=== PATIENT | male | born 1950 | race Caucasian/White ===

== ENCOUNTER 2019-07-21 11:03 | Emergency (ER) | payer MEDICARE, OTHER, SELFPAY ==
--- NOTE | ~2019-07-21 | XR_ITS ---
XR ankle LT min 3V DATE: 07/21/2019 11:55 INDICATION: Lateral pain and swelling for 2 days. No known injury. TECHNIQUE: 4 views COMPARISON: None FINDINGS: Small linear cortical densities are noted subjacent to the inferior tip of the lateral mall eolus which may represent small cortical avulsion fractures of undetermined age, possibly chronic. Th ere is mild lateral soft tissue swelling. No other fracture or dislocation of the ankle or disruption of the ankle mortise is detected. Mild plantar calcaneal enthesopathy. IMPRESSION: Indeterminate small cortical avulsion fractures subjacent to the tip of the lateral malle olus Mild lateral soft tissue swelling Reviewed, dictated and finalized at location A. IMPRESSION: Indeterminate small cortical avulsion fractures subjacent to the ti p of the lateral malleolus Mild lateral soft tissue swelling
[2019-07-21 11:20] VITALS: BP 135/75; PULSE 70; RESP 16; TEMP 36.8; O2SAT 97
--- NOTE | 2019-07-21 13:15 | ED.LOWEXIN ---
HPI - Extremity Injury (Lower) General Chief Complaint: Extremity Injury, Lower Stated Complaint: Swollen Ankle History of Present Illness HPI Narrative: This is a 68-year-old male comes in complaining of left lateral ankle swelling for the past 3 to 4 days. Patient denies do anything for his symptoms patient's denies any injury patient wants an x-ray. Patient has had ankle and hereknee pain that has been chronic for years Related Data Home Medications Medication Instructions Recorded Confirmed bupropion HCl 300 mg PO QAM 07/21/19 07/21/19 clopidogrel [Plavix] 75 mg PO DAILY 07/21/19 07/21/19 eszopiclone [Lunesta] 1 mg PO HS 07/21/19 07/21/19 potassium chloride 10 meq PO BID 07/21/19 07/21/19 Allergies Allergy/AdvReac Type Severity Reaction Status Date / Time Penicillins Allergy Unknown Rash Verified 09/02/17 18:48 pneumococcal vaccine Allergy Unknown Rash Verified 09/02/17 18:48 NSAIDS (Non-Steroidal AdvReac Unknown Other Verified 09/02/17 18:48 Anti-Inflamma Review of Systems Review of Systems: Narrative: CONSTITUTIONAL: Denies fever, chills, or sweats. EYES: Denies visual changes, redness, or discharge. ENT: Denies rhinorrhea, congestion, sore throat, or otalgia. CARDIOVASCULAR:Denies chest pain, palpitations, or edema. RESPIRATORY: Denies cough or dyspnea. GASTROINTESTINAL: Denies abdominal pain, nausea, vomiting, or diarrhea. GENITOURINARY: Denies dysuria or hematuria. SKIN:[Denies rash or itching. MUSCULOSKELETAL:Denies back pain, positive left ankle joint pain, or myalgia. NEUROLOGIC: Denies headache, numbness, or weakness. PSYCHIATRIC:Denies anxiety or depression PMFSH Comments At time as signature, I have reviewed and agree with nursing past medical, social, surgical and family history. Please see nursing chart for further information. There is no relevant family history pertinent to the presenting complaint. Exam Narrative: Exam Narrative: GENERAL:Well-appearing, well-nourished, and in no acute distress. HEAD:Normocephalic, atraumatic. EYES: PERRLA and EOMI. ENT: Nares clear, no rhinorrhea or epistaxis. Mucous membranes moist. NECK: Supple. CHEST: Clear to auscultation. No respiratory distress. HEART: Regular rate and rhythm. No murmur heard. Normal peripheral pulses. ABDOMEN: Soft, nontender, nondistended, normal active bowel sounds. EXTREMITIES: decreased left ankle range of motion due to pain .left ankle edema and swelling that patient states has been going on for months Course Vital Signs Vital signs: Vital Signs Temperature 98.2 F 07/21/19 11:20 Pulse Rate 70 07/21/19 11:20 Respiratory Rate 16 07/21/19 11:20 Blood Pressure 135/75 07/21/19 11:20 Pulse Oximetry 97 07/21/19 11:20 Temperature 98.2 F 07/21/19 11:20 Pulse Rate 70 07/21/19 11:20 Respiratory Rate 16 07/21/19 11:20 Blood Pressure 135/75 07/21/19 11:20 Pulse Oximetry 97 07/21/19 11:20 MDM - Extremity Injury (Lower) Differential Diagnosis Differential diagnosis: Likely ankle sprain and strain, acute internal derangement of knee, fracture of toe and ankle fracture Discharge Plan Discharge Clinical Impression: Fracture of ankle, lateral malleolus, closed Qualifiers: Encounter type: initial encounter Fracture alignment: nondisplaced Laterality: left Qualified Code(s): S82.65XA - Nondisplaced fracture of lateral malleolus of left fibula, initial encounter for closed fracture Patient Disposition: Home, Self-Care Condition: Stable Instructions: Antibiotic Form, Ankle Fracture (ED) Additional Instructions: Avoid weight bearing until the pain subsides. Ice to the area 20-30 minutes 4-6 times a day Elevate above heart Elastic wrap or orthopedic splint as directed for comfort for the next 5-7 days Crutches as directed if needed Tylenol for lesser pain Ibuprofen regularly for the next 2-3 days for the inflammation Follow up with your primary care provider if the condition is not i
== END 2019-07-21 14:13 | disposition home or self-care (01) ==
PROVIDERS: Emergency Provider Nurse Practitioner Family; PCP Internal Medicine
DX: S82.65XA Nondisplaced fracture of lateral malleolus of left fibula, initial encounter for closed fracture (principal); X58.XXXA Exposure to other specified factors, initial encounter; Z79.01 Long term (current) use of anticoagulants; I48.91 Unspecified atrial fibrillation; Z95.0 Presence of cardiac pacemaker
CPT/HCPCS: 73610; 99213; G0463

== ENCOUNTER 2019-11-19 08:00 | Outpatient (RCR) | payer MEDICARE, OTHER, SELFPAY ==
--- NOTE | 2019-10-30 15:54 | OTOPEVAL ---
OCCUPATIONAL THERAPY EVALUATION REPORT 10/30/2019 Thank you for referring Khadar Flowers to [facility]. Skilled OT indicated 2x/week for 3 weeks. Please review, sign, date and return this plan of care SIDNEY. I agree with and certify that the following plan of care is medically necessary. Referring Physician Date Referring Provider: Dr. Thomas Rosenberg *OT Outpatient Evaluation Start: 10/30/19 13:38 Freq: Status: Active Protocol: Document 10/30/19 13:38 MEGHANA (Rec: 10/30/19 14:21 MEGHANA [id number]) Therapy Assessment Status Assessment Status Assessment Status Evaluation Outpatient Past Medical History Cardiovascular History Hx Atrial Fibrillation Yes Hx Cardiac Catheterization Yes Hx Pacemaker Yes Hx Vascular Surgery Yes: ABLATION, WATCHMAN PROCEEDURE Genitourinary History Hx Kidney Stones Yes Musculoskeletal History Hx Back Pain Yes Hx Fractures Yes: ankle fx, lateral malleolus Hx Orthopedic Surgery Yes: LOWER BACK, RT. KNEE HEENT History Hx Tonsillectomy Yes Psychosocial History Hx Anxiety Yes Evaluation Information Problem Diagnosis s/p trigger finger and carpal tunnel release right hand Onset 10/07/19 Prior Level of Function Activity Level (Last 3 Months) Occupation Retired Hand Dominance Right Pain Assessment Timing of Pain Assessment Timing of Pain Assessment Assessment Pain Scale Pain Scale Used Numeric (1 - 10) Self Report Pain Assessment Right Hand(s) Reported Pain Level 1 Lowest Pain Intensity 0 Greatest Pain Intensity 6 Pain Score Pain Score 1: Self Report Upper Extremity Range of Motion Wrist Range of Motion Right Wrist Flexion - Active 60 Wrist Extension - Active 40 Wrist Extension - Passive 60 Wrist Radial Deviation - Active 25 Wrist Ulnar Deviation - Active 35 Finger Range of Motion Right Index Finger PIP Joint Extension - -20 Active Index Finger Tip to Distal Palmar Crease 2 - Active Index Finger Tip to Base of Palm - 2 Active Middle Finger Tip to Distal Palmar 1 Crease - Active Middle Finger Tip to Base of Palm - 0 Active Ring Finger PIP Joint Extension - Active -15 Ring Finger PIP Joint Extension - 0 Passive Ring Finger Tip to Distal Palmar Crease 1 - Active Ring Finger Tip to Base of Palm - Active 0 Little Finger
--- NOTE | 2019-11-19 12:22 | OTOPEVAL ---
OCCUPATIONAL THERAPY DISCHARGE NOTE 11/19/2019 Khadar has participated in 4 sessions of outpatient OT following trigger finger release and carpal tunnel release surgeries on the right hand. Patient's biggest limitation to functional use was flexibility, particularly at the PIP joints of the involved digits. At this time the patient made progress with the index finger IP extension from 20* lag to 10* lag actively, and is able to achieve full extension passively. Ring finger actively is WNL. He is currently independent with all materials to continue to work on ROM and strength. Thank you for referring Khadar Flowers to [facility]. Please review, sign, date and return this D/C Note SIDNEY. I agree with and certify that the following plan of care is medically necessary. Referring Physician Date Referring Provider: Dr. Rosenberg
== END 2019-11-21 14:12 | disposition home or self-care (01) ==
LOC: ANHOT 08:00
PROVIDERS: PCP Internal Medicine
DX: G56.01 Carpal tunnel syndrome, right upper limb (principal); M65.30 Trigger finger, unspecified finger; M65.321 Trigger finger, right index finger
CPT/HCPCS: 97018; 97035; 97110; 97140; 97165

== ENCOUNTER 2020-11-02 21:43 | Emergency (ER) | payer MEDICARE, OTHER, SELFPAY ==
--- NOTE | ~2020-11-02 | CT_ITS ---
EXAMINATION: CT abdomen pelvis w con DATE: 11/03/2020 00:38 INDICATION: Abdominal pain TECHNIQUE: Computed tomography (CT) of the abdomen and pelvis was performed with 100 mL Omnipaque-350 intravenous contrast. Automated exposure control and iterative reconstruction technique were employe d. The dose-length product was 800.45 mGy-cm. COMPARISON: None FINDINGS: Mild atelectasis in the bilateral lower lobes. 6 mm likely intrafissural lymph node along the left ma galo fissure. Arch size is normal. No pericardial or pleural effusion. Cardiac pacemaker lead tips ter minating at the right atrial appendage and at the apex of the right ventricle. Likely closure device at the left atrial appendage. Liver, gallbladder, spleen, pancreas and bilateral adrenal glands are normal. Bilateral nephrolithias is. 3 stones in the right kidney the largest measuring 5 mm at the lower pole and 2 stones in the lef t kidney the largest at the lower pole measuring 3 mm. No ureteral stones or hydronephrosis. There is prominent diverticulosis along the descending and sigmoid colon. There is prominent wall thickening and inflammatory stranding centered at the proximal sigmoid colon consistent with diverticulitis. No abscess or free intraperitoneal gas. Trace amount of free fluid in the deep pelvis. Small bowel and a ppendix are normal. Small fat-containing right inguinal hernia. Bladder is normal. Prostatomegaly. No pathologically enla rged abdominal or pelvic lymphadenopathy. Partial L3 laminectomy. Anterior and posterior spinal fusio n at L3-L5 with bone graft cage at L3-L4 and with bilateral vertical marty and pedicle screw fixation a lso at L3-L4. Chronic L1 compression fracture with 20% anterior vertebral body height loss. IMPRESSION: 1. Radiographically uncomplicated sigmoid diverticulitis. 2. Bilateral nephrolithiasis. 3. Small fat-containing right inguinal hernia. 4. Prostatomegaly. Reviewed, dictated and finalized at location A.
[2020-11-02 22:05] VITALS: BP 151/82; PULSE 84; RESP 18; TEMP 36.9; O2SAT 97
[2020-11-02 22:30] LABS: Basophils Percent Auto 0.3 % (0.2-1.2); Eosinophils Percent Auto 0.2 % (0-4.4); Hematocrit 45.9 % (42.0-52.0); Hemoglobin 15.1 g/dL (14.0-18.0); Immature Granulocyte Absolute 0.08 K/mm3 (0.00-0.031); Immature Granulocyte Percent A 0.6 % (0-0.5); Mean Corpuscular HGB Conc 32.9 g/dl (32-36); Mean Corpuscular Hemoglobin 29.2 pg (26-34); Mean Corpuscular Volume 88.8 fl (80-100); Mean Platelet Volume 9.6 fl (7.4-10.4); Monocytes Absolute Auto 1.1 K/mm3 (0.1-0.6); Monocytes Percent Auto 8.6 % (2.6-8.5); Neutrophils Absolute Auto 10.3 K/mm3 (1.3-6.7); Neutrophils Percent Auto 82.3 % (45.5-73.1); Platelet Count Result 258 k/mm3 (150-375); Red Blood Count 5.17 M/mm3 (4.6-6.20); Red Cell Distribution Width 12.1 % (11.5-14.5); White Blood Count 12.6 K/mm3 (4.5-10.0)
[2020-11-02 22:38] LABS: Alanine Aminotransferase 17 U/L (4-50); Albumin Level 4.4 g/dL (3.5-5.1); Alkaline Phosphatase 122 U/L (38-126); Anion Gap 11 mmol/L (8-16); Aspartate Amino Transferase 25 U/L (17-59); Bilirubin,Total 0.9 mg/dL (0.2-1.3); Blood Urea Nitrogen 13 mg/dL (9-20); Calcium 10.5 mg/dL (8.4-10.2); Carbon Dioxide 22 mmol/L (22-30); Chloride 106 mmol/L (98-107); Estimated CRCL calculation 73 ml/min; Estimated Glomerular Filt Rate > 60; Glucose 101 mg/dL (75-110); Lipase 26 U/L (23-300); Potassium 4.2 mmol/L (3.4-5.0); Sodium 139 mmol/L (137-145)
--- NOTE | 2020-11-02 22:59 | PC.NURSE ---
PT AMBULATED IN [place] TO PROVIDE URINE SPECIMEN.
[2020-11-02 23:09] VITALS: PULSE 85; RESP 18; TEMP 37.1; O2SAT 97
--- NOTE | 2020-11-02 23:12 | PC.NURSE ---
AGREE WITH TRIAGE NOTES. PT PRESENTS TO ED WITH COMPLAINTS OF ABDOMINAL PAIN THAT ONSET THREE DAYS AGO. PT COMPLAINING OF CONSTIPATION AND STATES HE HAS BEEN TAKING STOOL SOFTENERS WITH SOME RELIEF. pT DENIES ABDOMINAL PAIN AT THIS TIME AND STATES THE PAIN IS INTERMITTENT. ADMITS TO NAUSEA AND DENIES EMESIS, DIARRHEA, FEVER, CHEST PAIN AND SOB. PT NOTED TO BE ALERT AND ORIENTED X4 AND IN NO OBVIOUS DISTRESS. CALL BUTTON AND PERSONAL ITEMS WITHIN REACH. PT ADVISED TO PRESS CALL BUTTON FOR ASSISTANCE.
[2020-11-02 23:29] LABS: Add Urine Microscopic? YES; Appearance Urine Clear (Clear); Bilirubin Urine Negative (Negative); Blood Urine Negative (Negative); Color Urine Yellow (Yellow); Glucose Urine UA Negative (Negative); Ketones Urine Trace mg/dL (Negative); Leukocyte Esterase Ur Negative LEU/UL (Negative); Mucus Urine Rare /lpf; Nitrate Urine Negative (Negative); Protein Urine Negative (Negative); RBC Urine 0-2 /hpf (0-2); Urobilinogen Urine Negative mg/dL (<2.0); WBC Urine 0-3 /hpf
--- NOTE | 2020-11-02 23:41 | ED.ABDPAIN ---
HPI - Abdominal Pain General Chief Complaint: Abdominal Pain Stated Complaint: abdominal pain, fever Time Seen by Provider: 11/02/20 23:39 Source: patient Mode of arrival: ambulatory Limitations: no limitations History of Present Illness HPI narrative: Patient is a 70-year-old male complaining of abdominal pain, lower abdomen, dull, 6 out of 10, nonradiating x3 days. Patient denies any chest pain, shortness of breath, nausea, vomiting, diarrhea, fever, chills or GI bleed. Related Data Home Medications Medication Instructions Recorded Confirmed bupropion HCl 300 mg PO QAM 07/21/19 07/21/19 clopidogrel [Plavix] 75 mg PO DAILY 07/21/19 07/21/19 eszopiclone [Lunesta] 1 mg PO HS 07/21/19 07/21/19 potassium chloride 10 meq PO BID 07/21/19 07/21/19 Allergies Allergy/AdvReac Type Severity Reaction Status Date / Time Penicillins Allergy Unknown Rash Verified 11/02/20 22:08 pneumococcal vaccine Allergy Unknown Rash Verified 11/02/20 22:08 NSAIDS (Non-Steroidal AdvReac Unknown Other Verified 11/02/20 22:08 Anti-Inflamma Review of Systems Review of Systems: All systems reviewed & are unremarkable except as noted in HPI and below Constitutional: Constitutional: Denies body ache(s), Denies chills, Denies excessive sweating, Denies fatigue, Denies fever(s), Denies headache(s), Denies lethargy, Denies malaise, Denies weakness and Denies weight loss Eyes: Eyes: Denies blurry vision, Denies change in vision and Denies loss of vision ENT: Denies dizziness, Denies ear discharge, Denies headache(s), Denies lip swelling, Denies epistaxis, Denies nasal congestion, Denies neck pain, Denies throat swelling and Denies tongue swelling Cardiovascular: Cardiovascular: Denies chest pain, Denies chest pain at rest, Denies chest pain with activity, Denies diaphoresis, Denies rapid heart rate, Denies edema, Denies irregular heart rhythm, Denies lightheadedness, Denies palpitations, Denies dyspnea and Denies dyspnea on exertion Respiratory: Respiratory: Denies chest congestion, Denies cough, Denies hemoptysis, Denies dyspnea and Denies dyspnea on exertion Gastrointestinal: Gastrointestinal: Denies abdominal pain, Denies melena, Denies hematochezia, Denies diarrhea, Denies nausea, Denies vomiting and Denies hematemesis Musculoskeletal: Musculoskeletal: Denies abnormal gait, Denies deformity, Denies joint swelling, Denies limited range of motion, Denies neck pain and Denies numbness Neurologic: Denies Abnormal speech present, Denies abnormal gait, Denies confusion, Denies dizziness, Denies headache(s), Denies focal weakness, Denies loss of vision, Denies numbness, Denies Other visual disturbances, Denies Sensory deficit (Neuro) and Denies weakness Psychiatric: Psychiatric: Denies confusion, Denies depression, Denies auditory hallucinations, Denies homicidal ideation and Denies suicidal ideation Endocrine: Endocrine: Denies cold intolerance, Denies excessive sweating, Denies fatigue, Denies heat intolerance and Denies palpitations Hematologic/Lymphatic: Hematologic/Lymphatic: Denies easy bleeding and Denies easy bruising Allergic/Immunologic: Allergic/Immunologic: Denies lip swelling, Denies throat swelling and Denies tongue swelling PMFSH Comments Past medical history: Coronary artery disease, insomnia Social history: Non-smoker no EtOH or drug use Family history: Noncontributory Exam Const: General: cooperative, healthy appearing, comfortable, no acute distress, well developed, alert and awake; No confusion Orientation/consciousness: oriented to person, oriented to place, oriented to time, patient oriented x3 and No confusion Limitations: no limitations HENMT: Head: normal to inspection, normocephalic and atraumatic Ears: hearing grossly normal bilaterally, TM normal on the right and TM normal on the left General nose exam: Normal external nose present, Normal nares present and No nasal discharge present Face and sinus: normal facial exam Mouth:
[2020-11-03] MEDS: LACTATED RINGERS 1,000 ML 999 ML IV CONT (00:08)
--- NOTE | 2020-11-03 01:08 | PC.NURSE ---
Pharmacy called for med. [facility] med was just tubed.
[2020-11-03 01:13] VITALS: BP 163/84; PULSE 80; RESP 23; O2SAT 98
[2020-11-03 02:11] VITALS: BP 140/76; PULSE 84; RESP 24; O2SAT 95
--- NOTE | 2020-11-03 02:12 | PC.NURSE ---
EDMD presented to bedside to update pt on poc and all questions and concerns addressed. Pt states he does not want to be admitted due to other commitments. Pt aware of need to infuse meds before dc and agrees to stay for administration. Pt resting on cart in its lowest position with call button and personal items within reach. Pt advised to press call button for assistance.
[2020-11-03] MEDS: metroNIDAZOLE 500 MG/ISO 100ML 500 MG/100 ML BAG 100 MG IVPB (02:40)
[2020-11-03] MEDS: SODIUM CHLORIDE 0.9% IV 1,000 ML 999 ML IV CONT (02:41)
[2020-11-03 03:37] VITALS: BP 152/85; PULSE 83; RESP 21; TEMP 37; O2SAT 99
--- NOTE | 2020-11-03 03:37 | PC.NURSE ---
Pt at bedside using urinal. Remains alert and oriented x4 with stable vitals and is in no obvious distress at this time. Pt is prepared for dc and is aware to return to ED if symptoms increase.
== END 2020-11-03 03:50 | disposition home or self-care (01) ==
PROVIDERS: Emergency Medicine; Emergency Provider Emergency Medicine; PCP Internal Medicine
DX: K57.92 Diverticulitis of intestine, part unspecified, without perforation or abscess without bleeding (principal); Z79.02 Long term (current) use of antithrombotics/antiplatelets
CPT/HCPCS: 36415; 74177; 80053; 81001; 83690; 85025; 96361; 96365; 96367; 96375; 99284; J0131; J0696; J7030; J7120; Q9967

== ENCOUNTER 2020-12-25 12:31 | Emergency (ER) | payer MEDICARE, OTHER, SELFPAY ==
[2020-12-25 12:56] VITALS: BP 141/71; PULSE 80; RESP 18; TEMP 36.4; O2SAT 99
[2020-12-25 13:21] LABS: Basophils Percent Auto 0.4 % (0.2-1.2); Eosinophils Absolute Auto 0.1 K/mm3 (0-0.3); Eosinophils Percent Auto 0.7 % (0-4.4); Hematocrit 45.3 % (42.0-52.0); Hemoglobin 14.8 g/dL (14.0-18.0); Immature Granulocyte Absolute 0.02 K/mm3 (0.00-0.031); Immature Granulocyte Percent A 0.2 % (0-0.5); Lymphocytes Absolute Auto 1.38 K/mm3 (0.9-3.2); Mean Corpuscular HGB Conc 32.7 g/dl (32-36); Mean Corpuscular Hemoglobin 29.5 pg (26-34); Mean Corpuscular Volume 90.2 fl (80-100); Mean Platelet Volume 9.8 fl (7.4-10.4); Monocytes Absolute Auto 0.9 K/mm3 (0.1-0.6); Monocytes Percent Auto 9.2 % (2.6-8.5); Neutrophils Absolute Auto 6.9 K/mm3 (1.3-6.7); Neutrophils Percent Auto 74.5 % (45.5-73.1); Platelet Count Result 214 k/mm3 (150-375); Red Blood Count 5.02 M/mm3 (4.6-6.20); Red Cell Distribution Width 13.4 % (11.5-14.5); White Blood Count 9.2 K/mm3 (4.5-10.0)
[2020-12-25 13:38] LABS: Alanine Aminotransferase 20 U/L (4-50); Albumin Level 4.3 g/dL (3.5-5.1); Alkaline Phosphatase 105 U/L (38-126); Anion Gap 8 mmol/L (8-16); Aspartate Amino Transferase 23 U/L (17-59); Bilirubin,Total 1.1 mg/dL (0.2-1.3); Blood Urea Nitrogen 13 mg/dL (9-20); Calcium 10.1 mg/dL (8.4-10.2); Carbon Dioxide 24 mmol/L (22-30); Chloride 105 mmol/L (98-107); Estimated CRCL calculation 82 ml/min; Estimated Glomerular Filt Rate > 60; Glucose 106 mg/dL (65-110); Lipase 25 U/L (23-300); Potassium 3.9 mmol/L (3.4-5.0); Sodium 137 mmol/L (137-145)
--- NOTE | 2020-12-25 14:18 | PC.NURSE ---
pt states he is going home. left from the waiting room.
== END 2020-12-26 04:46 | disposition left against medical advice (07) ==
PROVIDERS: Emergency Provider Emergency Medicine; PCP Internal Medicine
DX: R10.9 Unspecified abdominal pain (principal); Z53.21 Procedure and treatment not carried out due to patient leaving prior to being seen by health care provider
CPT/HCPCS: 36415; 80053; 83690; 85025; 99199

== ENCOUNTER 2021-09-05 14:36 | Observation (INO) | payer MEDICARE, OTHER, SELFPAY ==
[2021-09-05] VITALS (7 sets, daily range): BP systolic 130–151; BP diastolic 70–91; PULSE 60–86; RESP 16–20; TEMP 36.1–36.7; O2SAT 97–100
--- NOTE | ~2021-09-05 | CT_ITS ---
EXAMINATION: CT abdomen pelvis w con DATE: 09/05/2021 15:59 INDICATION: Left lower quadrant pain TECHNIQUE: Computed tomography (CT) of the abdomen and pelvis was performed with 100 mL Omnipaque-350 intravenous contrast. The dose-length product was 1021.69 mGy-cm. COMPARISON: 11/03/2020. FINDINGS: Lower thorax: Unremarkable. Liver: Normal. Biliary/Gallbladder: Gallbladder is normal. No bile duct dilation. Spleen: Normal. Pancreas: No mass or duct dilation. Adrenals:No mass. Kidneys: Left perinephric stranding and fluid. 5 mm stone in the left mid ureter. Nonobstructive righ t renal stones. No renal masses. GI tract: No small or large bowel dilation. Extensive diverticulosis without diverticulitis. Normal a ppendix. Mesentery/Peritoneum: No ascites, mass, or free air. Retroperitoneum: No mass. Pelvis: Pelvic organs are within normal limits. Bones/Soft Tissues: Soft tissues and body wall unremarkable. Degenerative changes. Uncomplicated appe aring lumbar fusion. Additional Findings: None. IMPRESSION: 5 mm left mid ureteral stone causing mild obstructive uropathy. No evidence of diverticulitis. Reviewed, dictated and finalized at location K.
--- NOTE | ~2021-09-05 | XR_ITS ---
EXAMINATION: XR retrograde pyelogram LT DATE: 09/06/2021 17:02 INDICATION: Left-sided retrograde pyelogram for left ureteral stone. TECHNIQUE: 3 fluoroscopic images of the abdomen and pelvis were obtained during procedure performed jorge luis Og. Radiologist was not present for the imaging or procedure. The amount of fluoroscopy ti me used during this procedure was 0.5 minutes. COMPARISON: CT dated 09/05/2021 FINDINGS: There is a small amount of excreted contrast within the bladder and initial analytical consultant image likely relate d to the earlier CT scan. Couple phleboliths in the deep right hemipelvis. Midline instrumented L3-L4 anterior and posterior spinal fusion. Subsequent images demonstrate mild left hydronephrosis with sm all lucent filling defect in the proximal to mid left ureter measuring approximately 3-4 mm likely re presenting the previous noted ureteral stone. IMPRESSION: 1. 3-4 mm at least partially obstructing stone in the proximal to mid left ureter with mild left hydr onephrosis. Procedure note for further detail and to determine whether the stone was subsequently ext racted. Reviewed, dictated and finalized at location A. IMPRESSION: 1. 3-4 mm at least partially obstructing stone in the proximal to mid left uret er with mild left hydronephrosis. Procedure note for further detail and to dete rmine whether the stone was subsequently extracted.
[2021-09-05 14:55] LABS: Basophils Percent Auto 0.3 % (0.2-1.2); Eosinophils Absolute Auto 0.1 K/mm3 (0-0.3); Eosinophils Percent Auto 1.2 % (0-4.4); Hematocrit 44.8 % (42.0-52.0); Hemoglobin 15.2 g/dL (14.0-18.0); Immature Granulocyte Absolute 0.02 K/mm3 (0.00-0.031); Immature Granulocyte Percent A 0.3 % (0-0.5); Lymphocytes Absolute Auto 1.27 K/mm3 (0.9-3.2); Lymphocytes Percent Auto 17.4 % (18.3-44.2); Mean Corpuscular HGB Conc 33.9 g/dl (32-36); Mean Corpuscular Hemoglobin 29.9 pg (26-34); Mean Platelet Volume 9.6 fl (7.4-10.4); Monocytes Absolute Auto 0.6 K/mm3 (0.1-0.6); Monocytes Percent Auto 7.7 % (2.6-8.5); Neutrophils Absolute Auto 5.3 K/mm3 (1.3-6.7); Neutrophils Percent Auto 73.1 % (45.5-73.1); Platelet Count Result 212 k/mm3 (150-375); Red Blood Count 5.09 M/mm3 (4.6-6.20); Red Cell Distribution Width 12.3 % (11.5-14.5); White Blood Count 7.3 K/mm3 (4.5-10.0)
--- NOTE | 2021-09-05 15:09 | ED.ABDPAIN ---
HPI - Abdominal Pain General Chief Complaint: Abdominal Pain Stated Complaint: abd pain Time Seen by Provider: 09/05/21 15:05 Source: patient Related Data Home Medications Medication Instructions Recorded Confirmed bupropion HCl 300 mg PO QAM 07/21/19 07/21/19 clopidogrel [Plavix] 75 mg PO DAILY 07/21/19 07/21/19 eszopiclone [Lunesta] 1 mg PO HS 07/21/19 07/21/19 potassium chloride 10 meq PO BID 07/21/19 07/21/19 Allergies Allergy/AdvReac Type Severity Reaction Status Date / Time Penicillins Allergy Unknown Rash Verified 09/05/21 15:06 pneumococcal vaccine Allergy Unknown Rash Verified 09/05/21 15:06 NSAIDS (Non-Steroidal AdvReac Unknown Other Verified 09/05/21 15:06 Anti-Inflamma Course Vital Signs Vital signs: Vital Signs Temperature 36.2 C L 09/05/21 14:38 Pulse Rate 86 09/05/21 14:38 Respiratory Rate 16 09/05/21 14:38 Blood Pressure 134/73 09/05/21 14:38 Pulse Oximetry 100 09/05/21 14:38 Temperature 36.2 C L 09/05/21 14:38 Pulse Rate 86 09/05/21 14:38 Respiratory Rate 16 09/05/21 14:38 Blood Pressure 134/73 09/05/21 14:38 Pulse Oximetry 100 09/05/21 14:38 MDM - Abdominal Pain Lab Data Result diagrams: 09/05/21 14:43 09/05/21 14:43 Labs: Lab Results 09/05/21 09/05/21 Range/Units 14:43 14:43 WBC 7.3 (4.5-10.0) K/mm3 RBC 5.09 (4.6-6.20) M/mm3 Hgb 15.2 (14.0-18.0) g/dL Hct 44.8 (42.0-52.0) % MCV 88.0 (80-100) fl MCH 29.9 (26-34) pg MCHC 33.9 (32-36) g/dl RDW 12.3 (11.5-14.5) % Plt Count 212 (150-375) k/mm3 MPV 9.6 (7.4-10.4) fl Immature Gran % (Auto) 0.3 (0-0.5) % Neut % (Auto) 73.1 (45.5-73.1) % Lymph % (Auto) 17.4 L (18.3-44.2) % Payne % (Auto) 7.7 (2.6-8.5) % Eos % (Auto) 1.2 (0-4.4) % Baso % (Auto) 0.3 (0.2-1.2) % Lymph # (Auto) 1.27 (0.9-3.2) K/mm3 Payne # (Auto) 0.6 (0.1-0.6) K/mm3 Eos # (Auto) 0.1 (0-0.3) K/mm3 Baso # (Auto) 0.0 (0.0-0.1) K/mm3 Abs Immat Gran (auto) 0.02 (0.00-0.031) K/mm3 Absolute Neuts (auto) 5.3 (1.3-6.7) K/mm3 Absolute Nucleated RBC 0.0 (0.0-0.012) K/mm3 Nucleated RBC % 0.0 (0.0-0.2) % Sodium Pending Potassium Pending Chloride Pending Carbon Dioxide Pending Anion Gap Pending BUN Pending Creatinine Pending Estim Creat Clear Calc Pending Estimated GFR Pending Glucose Pending Calcium Pending Total Bilirubin Pending AST Pending ALT Pending Alkaline Phosphatase Pending Total Protein Pending Albumin Pending Lipase Pending Discharge Plan Discharge Prescriptions: No Action potassium chloride 10 mEq Tablet Extended Release 10 meq PO BID RF: 0 clopidogrel [Plavix] 75 mg Tablet 75 mg PO DAILY RF: 0 bupropion HCl 300 mg Tablet Extended Release 24 Hr 300 mg PO QAM RF: 0 eszopiclone [Lunesta] 1 mg Tablet 1 mg PO HS RF: 0 tramadol 50 mg tablet 50 mg PO Q6H PRN (Reason: pain) Qty: 10 RF: 0 metronidazole [Flagyl] 500 mg tablet 500 mg PO Q8H Qty: 21 RF: 0 ciprofloxacin HCl [Cipro] 500 mg tablet 500 mg PO Q12H Qty: 14 RF: 0
[2021-09-05 15:16] LABS: Alanine Aminotransferase 23 U/L (4-50); Albumin Level 3.9 g/dL (3.5-5.1); Alkaline Phosphatase 104 U/L (38-126); Anion Gap 7 mmol/L (8-16); Aspartate Amino Transferase 31 U/L (17-59); Bilirubin,Total 0.5 mg/dL (0.2-1.3); Blood Urea Nitrogen 15 mg/dL (9-20); Calcium 9.5 mg/dL (8.4-10.2); Carbon Dioxide 24 mmol/L (22-30); Chloride 108 mmol/L (98-107); Estimated CRCL calculation 67 ml/min; Estimated Glomerular Filt Rate > 60; Glucose 123 mg/dL (65-110); Lipase 49 U/L (23-300); Sodium 139 mmol/L (137-145)
[2021-09-05] MEDS: SODIUM CHLORIDE 0.9% IV 1,000 ML 999 ML IV CONT (15:26)
[2021-09-05] MEDS: ONDANSETRON INJ 4 MG/2 ML VIAL IV PUSH ×2 (15:27→18:15)
[2021-09-05] MEDS: HYDROmorphone HCL INJ (*CRX) 1 MG/ML SYR 0.5 MG IV PUSH (15:31)
[2021-09-05 15:52] LABS: Add Urine Microscopic? YES; Appearance Urine Cloudy (Clear); Bilirubin Urine Negative (Negative); Blood Urine 3+ (Negative); Calcium Oxalate Crystals Urine Present /hpf; Color Urine Yellow (Yellow); Glucose Urine UA Negative (Negative); Ketones Urine Negative (Negative); Leukocyte Esterase Ur Negative LEU/UL (Negative); Mucus Urine Rare /lpf; Nitrate Urine Negative (Negative); Protein Urine Negative (Negative); RBC Urine >75 /hpf (0-2); Specific Grav Ur 1.019 (1.001-1.035); Urobilinogen Urine Negative mg/dL (<2.0); WBC Urine 0-3 /hpf
[2021-09-05 17:32] LABS: Lactic Acid Reflex 0.6 mmol/L (0.7-2.0)
--- NOTE | 2021-09-05 18:09 | ED.ABDPAIN ---
HPI - Abdominal Pain General Chief Complaint: Abdominal Pain Stated Complaint: abd pain Time Seen by Provider: 09/05/21 15:05 Source: patient History of Present Illness HPI narrative: Patient is a 70-year-old male with a history of kidney stones (hx shock wave lithotripsy- Lucia), diverticulitis, afib s/p pacemaker placement, who presents emergency department for evaluation of left flank pain for the past day. Patient states the pain begins in his left flank and radiates into his LLQ. It is sharp, stabbing, shooting in nature and is severe. Patient states he became nauseous today and began to vomit, and has vomited 3 times in total. Additionally reports some blood in his urine, but no dysuria, frequency, urgency. No fevers or chills at home. Related Data Home Medications Medication Instructions Recorded Confirmed bupropion HCl 300 mg PO QAM 07/21/19 09/05/21 clopidogrel [Plavix] 75 mg PO DAILY 07/21/19 09/05/21 eszopiclone [Lunesta] 1 mg PO HS PRN 07/21/19 09/06/21 potassium chloride 20 meq PO BID 07/21/19 09/05/21 cyanocobalamin (vitamin B-12) 50 mcg PO DAILY 09/05/21 09/05/21 fluticasone propionate [Flonase] 1 spray INTRANASAL DAILY 09/05/21 09/05/21 sotalol 80 mg PO BID 09/05/21 09/05/21 Allergies Allergy/AdvReac Type Severity Reaction Status Date / Time Penicillins Allergy Unknown Rash Verified 09/05/21 22:30 pneumococcal vaccine Allergy Unknown Rash Verified 09/05/21 22:30 adhesive tape Allergy Swelling Verified 09/05/21 22:30 amiodarone Allergy Other Verified 09/05/21 22:30 NSAIDS (Non-Steroidal AdvReac Mild Other Verified 09/05/21 22:30 Anti-Inflamma Review of Systems Review of Systems: Gen: Denies fevers or chills Eyes: Denies eye pain or visual change ENT: Denies congestion Respiratory: Denies shortness of breath or cough CV: Denies chest pain or palpitations GI: Denies abdominal pain nausea, emesis or diarrhea : reports hematuria. Denies burning, urgency, frequency Musculoskeletal: Reports left low back pain. Neuro: Denies numbness, tingling, weakness or focal weakness Skin: Denies rash Except as documented, all other systems reviewed and negative All systems reviewed & are unremarkable except as noted in HPI and below PMFSH Past Medical History Medical History (Updated 09/06/21 @ 02:17 by Julita Martinez PA-C) Depression Diet-controlled diabetes mellitus Essential hypertension History of BPH Hyperlipidemia Kidney stones Obstructive sleep apnea BiPAP Paroxysmal atrial fibrillation TIA (transient ischemic attack) (~2006) Surgical History Surgical History (Updated 09/05/21 @ 22:29 by Michelle Cai DO) Artificial cardiac pacemaker (~2013) History of cardiac catheterization (~2014) History of cardiac radiofrequency ablation 2008, 2013, 2016 History of laminectomy History of repair of rotator cuff History of tonsillectomy and adenoidectomy History of transurethral resection of prostate (~2015) Presence of Watchman left atrial appendage closure device (~2017) Status post trigger finger release Family History Family History Father DVT (deep venous thrombosis) Cerebrovascular accident Malignant neoplasm of prostate Sibling Breast cancer Colon cancer Ureter cancer Mother COPD (chronic obstructive pulmonary disease) Social History Social History (Updated 09/05/21 @ 22:33 by Michelle Cai DO) Social History: The patient lives in [place] with his of 47 years. 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 He denies any significant alcohol use to speak of. He denies illicit substance use. He quit smoking in the . Code status: Full code Surrogate decision maker: Smoking packs per day: 1 Smoking cigarettes per day: 20.0 Years smoked: 10 Smoking pack-years: 10.00 Smoking status:
--- NOTE | 2021-09-05 18:53 | PC.NURSE ---
Pts called and updated
[2021-09-05] MEDS: KETOROLAC 15 MG/ML VIAL (*BKC) IV PUSH (19:12)
--- NOTE | 2021-09-05 19:57 | PM.IMHP ---
H&P: HPI History of Present Illness Date/Time: 09/05/21 19:57 Chief Complaint: Left-sided abdominal pain Narrative: 70-year-old male the past medical history of paroxysmal atrial fibrillation no longer on anticoagulation after Watchman procedure, essential hypertension and prior kidney stones who presented to the ER with left lower abdominal pain. The patient reports that his symptoms started 5 days ago. He reports that he was hospitalized at [facility] until last Monday due to recurrent atrial flutter. He received sotalol loading and was discharged. He reports that since he was started on sotalol he had noticed some increased glass belt sander to his stools. When he began having they left-sided abdominal pain anteriorly in the mid left abdomen he thought it was due to the sotalol. He called his discharging doctor who thought his symptoms were due to possible food poisoning, since the patient was having accompanying nausea and vomiting. His symptoms resolved in under 24 hours but recurred today. Today the abdominal pain was a 10/10 in intensity in the left lower abdomen and radiated through to the back. He had some associated chills but did not measure his temperature. When he arrived to the ER he was afebrile. He again had recurrent nausea and vomiting of clear material. His pain was not relieved with Dilaudid in the ER in fact the 0.5 mg of Dilaudid made him goofy. His pain was improved after Toradol and his pain is minimal at this time. He did received 2 doses of Zofran in the ER with complete resolution of his nausea and vomiting. He denies any dysuria or gross hematuria. He has noticed decreased urine output throughout the day. He has had 2 prior kidney stones both of which required cystoscopy with stent placement. His last 1 was approximately 2015. He reported that with his initial cystoscopy and stent placement he did have a allergic reaction to a medication when the stent was removed and required some steroid therapy. He did not have a recurrence of the symptoms with his subsequent procedures. He sees a urologist at [facility]. He denies any chest pain, shortness of breath, palpitations. He denies any coffee-ground emesis or hematemesis. His stools have been brown and soft. His last bowel movement was yesterday. Review of Systems Review of Systems: 10 systems were reviewed with pertinent positives and negatives per HPI. Except as documented in the HPI, all other systems were reviewed and are negative. [facility] Past Medical History Medical History (Updated 09/05/21 @ 22:29 by Michelle Cai DO) Depression Diet-controlled diabetes mellitus Essential hypertension History of BPH Hyperlipidemia Kidney stones Obstructive sleep apnea BiPAP Paroxysmal atrial fibrillation TIA (transient ischemic attack) (~2006) Surgical History Surgical History (Updated 09/05/21 @ 22:29 by Michelle Cai DO) Artificial cardiac pacemaker (~2013) History of cardiac catheterization (~2014) History of cardiac radiofrequency ablation 2008, 2013, 2016 History of laminectomy History of repair of rotator cuff History of tonsillectomy and adenoidectomy History of transurethral resection of prostate (~2015) Presence of Watchman left atrial appendage closure device (~2017) Status post trigger finger release Family History Family History (Updated 09/05/21 @ 20:16 by Michelle Cai DO) Father DVT (deep venous thrombosis) Cerebrovascular accident Malignant neoplasm of prostate Sibling Breast cancer Colon cancer Ureter cancer Mother COPD (chronic obstructive pulmonary disease) Social History Social History (Updated 09/05/21 @ 22:33 by Michelle Cai DO) Social History: The patient lives in [place] with his of 47 years. 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 He denies any significant alcohol use to speak of. He denies illicit substance
--- NOTE | 2021-09-05 22:20 | ADMGEN ---
This patient, Khadar Flowers, was admitted to Medical Room 261-01. Patient/family oriented to hospital policies and general routines including ID bracelet, bed and alarms, visiting hours, pain management, procedures, bathroom and other care routines, personal items, smoking policy, room service/diet, and visiting hours. Information on how to activate the Rapid Response Team has been discussed. Patient/Family are encouraged to report perceived risks to care and to ask questions if they do not understand what they are told or what they should do.
[2021-09-05] MEDS: SODIUM CHLORIDE 0.9% IV 1,000 ML 150 ML IV CONT (23:02)
[2021-09-05] MEDS: HYDROcodone/acetaminophen (*CRX) 5-325 MG TABLET 1 TAB PO (23:02)
[2021-09-06] VITALS (17 sets, daily range): BP systolic 119–157; BP diastolic 66–89; PULSE 60–85; RESP 12–20; TEMP 35.7–36.5; O2SAT 96–99
--- NOTE | 2021-09-06 03:23 | PCRCNOTE ---
Pt states that his machine at home was originally set as a CPAP but that it was switched to have a minimal PS of 1 or 1.5 that was essentially like a reverse C-Flex. He was set up here with an auto BiPAP machine with a PS of 1.
[2021-09-06] MEDS: SODIUM CHLORIDE 0.9% IV 1,000 ML 150 ML IV CONT ×2 (05:39→12:53)
--- NOTE | 2021-09-06 07:39 | WPDURCON ---
Assessment and Plan Assessment and plan (1) Left ureteral stone: Code(s): N20.1 - Calculus of ureter Status: Acute Assessment and Plan: will plan for left ureteroscopy with stone extraction. May require holmium laser lithotripsy. Will also plan on a stent. He understands risks of bleeding, infection, damage to the urinary tract, inability to remove the stone and a need for a secondary procedure. he understands if I cannot get to the left ureteral stone that a stent be placed we a 2nd stone procedure to follow. He agrees to proceed (2) Hydronephrosis: Code(s): N13.30 - Unspecified hydronephrosis Status: Acute Urology Consult Note HPI Date Seen: 09/06/21 Requesting Physician: Sonia Don PA-C Primary Care Provider: Timmy Davidson MD Consult Narrative Narrative: Khadar Flowers is a 70 year old male With history of stone disease. He has been managed at [facility] and at [facility]. He has had ureteroscopy with stone extraction the past. He has history of arrhythmia and is chronically anticoagulated. He has a pacemaker and a watchman device. He presented to the hospital yesterday afternoon with worsening left flank pain radiating to left lower quadrant. He noted nausea and vomiting. He had a similar episode a week previous which he attributed to a heart medication. A CT scan was done which showed a 5 mm mid ureteral stone. He is currently comfortable but would like intervention for his stone. I offered observation as well with a conservative trial of stone passage. He like to pursue ureteroscopy to eliminate future pain episodes. Review of Systems Review of Systems: All systems reviewed & are unremarkable except as noted in HPI and below [facility] Past Medical History Medical History (Updated 09/06/21 @ 07:43 by Jayjay Og MD) Depression Diet-controlled diabetes mellitus Essential hypertension History of BPH Hyperlipidemia Kidney stones Obstructive sleep apnea BiPAP Paroxysmal atrial fibrillation TIA (transient ischemic attack) (~2006) Surgical History Surgical History (Updated 09/05/21 @ 22:29 by Michelle Cai DO) Artificial cardiac pacemaker (~2013) History of cardiac catheterization (~2014) History of cardiac radiofrequency ablation 2008, 2013, 2017 History of laminectomy History of repair of rotator cuff History of tonsillectomy and adenoidectomy History of transurethral resection of prostate (~2016) Presence of Watchman left atrial appendage closure device (~2018) Status post trigger finger release Family History Family History Father DVT (deep venous thrombosis) Cerebrovascular accident Malignant neoplasm of prostate Sibling Breast cancer Colon cancer Ureter cancer Mother COPD (chronic obstructive pulmonary disease) Social History Social History (Updated 09/05/21 @ 22:33 by Michelle Cai DO) Social History: The patient lives in [place] with his of 47 years. 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 He denies any significant alcohol use to speak of. He denies illicit substance use. He quit smoking in the . Code status: Full code Surrogate decision maker: Smoking packs per day: 1 Smoking cigarettes per day: 20.0 Years smoked: 10 Smoking pack-years: 10.00 Smoking status: Former smoker Tobacco type: cigarettes Alcohol intake: never Substance use: never Substance use type: does not use Spiritual care concerns: No Meds Home Medications and Allergies Home Medications Medication Instructions Recorded Confirmed Type bupropion HCl 300 mg PO QAM 07/21/19 09/05/21 History clopidogrel [Plavix] 75 mg PO DAILY 07/21/19 09/05/21 History eszopiclone [Lunesta] 1 mg PO HS PRN 07/21/19 09/06/21 History potassium chloride 20
--- NOTE | 2021-09-06 07:44 | WPDHPUPDATE1 ---
History and Physical Update Update Date/Time: 09/06/21 07:44 History and Physical has been reviewed, including an updated exam of the patient. There are NO changes in the patient's condition. Risks, benefits, and alternatives have been discussed and questions answered. Patient agrees to proceed with procedure.
--- NOTE | 2021-09-06 08:02 | PM.DS ---
DS: Admitting Diagnosis Discharge Date 09/06/21 Admitting Diagnosis Flank pain. DS: Discharge Diagnosis Discharge Diagnosis (1) Urinary tract obstruction due to kidney stone: Code(s): N20.0 - Calculus of kidney; N13.8 - Other obstructive and reflux uropathy Status: Acute Assessment and Plan: Patient has an obstructing 5 mm left mid ureteral stone with mild obstructive uropathy. Urology performed cystoscopy with removal of bladder stone, left retrograde pyelogram. Pain and nausea control. Urology discharged this patient after the procedure. (2) Paroxysmal atrial fibrillation: Code(s): I48.0 - Paroxysmal atrial fibrillation Status: Inactive Assessment and Plan: Patient currently has Medtronic pacemaker, status post Watchman device implant, is not on any anticoagulation aside from Plavix. Continue sotalol Held Plavix today for procedure, continued tomorrow. DS: Summary Hospital Course Reason for hospitalization: Kidney stone. Hospital Course: See above for full hospital course. Time Spent with Patient Time attestation: Total time spent providing and/or coordinating discharge services: Exam Narrative: I did not re-examine this patient after cystoscopy and stone extraction, urology discharged the patient. GENERAL APPEARANCE: Alert and oriented x 3, in no apparent distress. HEENT: PERRL, EOMI. Sclerae anicteric. Moist mucous membranes. NECK: Supple. No JVD or obvious carotid bruits. RESPIRATORY: Respirations are nonlabored. Breath sounds are equal and clear bilaterally. No wheezes, Rhonchi, or rales. CARDIOVASCULAR: Regular rate and rhythm with normal S1-S2. No murmurs, gallops, or rubs. GASTROINTESTINAL: Soft, flat, and benign. No mass, tenderness, guarding, or rebound. No organomegaly or hernia. Bowel sounds are present. SKIN: Warm, dry, well perfused. Good turgor. No lesions, nodules, or rashes noted. Warm and dry. No rash or lesions on limited exam. EXTREMITIES: No cyanosis, clubbing, or edema. Radial and pedal pulses intact. NEUROLOGICAL: Alert. Cranial nerves 2-12 are grossly intact. No gross focal deficits to casual conversation. PSYCHIATRIC: Pleasant and cooperative with normal mood and affect. DS: Data Data Completed and Pending Completed studies during hospitalization: Pending at discharge 09/06/21 16:55 Surgical [PTH] Routine Discharge Plan Discharge Attending physician on discharge: Sonia Don Consulting providers: Jayjay Og ; Ugo Canas ; Ahsan Reza ; Michelle Cai Discharging Clinician: Jayjay Og Anticipated Discharge Date/Time: 09/06/21 17:05 Patient Disposition: Home, Self-Care Activity: may shower Diet: as tolerated Discharge Instructions: Continue all home medications. Start all medications given to you by urology. Return if you have worsening symptoms, fever, chills, chest pain, shortness a breath. Follow-up with Urology as advised by Urology. Patient Instructions: Antibiotic Form, Clopidogrel (By mouth), Blood Thinners (DC) Stand Alone Forms: General Discharge Information Follow-up/Referrals: Jorden Orellana MD [Physician] - (6 months) Discharge Medications: New phenazopyridine [Pyridium] 200 mg tablet 200 mg PO TID PRN (Reason: pain) Qty: 30 0RF Continued potassium chloride 10 mEq Tablet Extended Release 20 meq PO BID clopidogrel [Plavix] 75 mg Tablet 75 mg PO DAILY bupropion HCl 300 mg Tablet Extended Release 24 Hr 300 mg PO QAM eszopiclone [Lunesta] 1 mg Tablet 1 mg PO HS PRN (Reason: Sleep) sotalol 80 mg tablet 80 mg PO BID cyanocobalamin (vitamin B-12) 50 mcg Tablet 50 mcg PO DAILY fluticasone propionate 50 mcg/actuation [place],Suspension 1 spray INTRANASAL DAILY Date of admission: 09/05/21 18:57 Primary Care Provider: Stuart,Timmy Young Admitting Provid
--- NOTE | 2021-09-06 09:27 | PM.IMPN ---
Progress Note: A&P Assessment and Plan (1) Urinary tract obstruction due to kidney stone: Code(s): N20.0 - Calculus of kidney; N13.8 - Other obstructive and reflux uropathy Status: Acute Assessment and Plan: Patient has an obstructing 5 mm left mid ureteral stone with mild obstructive uropathy. Urology has been consulted, cystoscopy today at 4PM. NPO today. Pain medications with morphine and [place] a been provided. Nausea medication with Zofran. Will place patient on IV fluid hydration. (2) Paroxysmal atrial fibrillation: Code(s): I48.0 - Paroxysmal atrial fibrillation Status: Inactive Assessment and Plan: Patient currently has Medtronic pacemaker, status post Watchman device implant, is not on any anticoagulation aside from Plavix. Continue sotalol Held Plavix today for procedure, continued tomorrow. Subjective Date/time seen: 09/06/21 09:27 62-year-old male with history of AFib and a flutter, status post Watchman device, hypertension, diet-controlled diabetes, and history of obstructing kidney stones, here for nausea, vomiting, abdominal pain. Interval history: States he is having no pain today. The urologist came and saw him and told him his procedure will be today at 4:00 p.m. he had questions about his all medications and wants to be sure they are continued, as he was just started on sotalol. He denies nausea, vomiting, chest pain, shortness a breath, abdominal pain and urinary or stool changes. Exam Narrative: GENERAL APPEARANCE: Alert and oriented x 3, in no apparent distress. HEENT: PERRL, EOMI. Sclerae anicteric. Moist mucous membranes. NECK: Supple. No JVD or obvious carotid bruits. RESPIRATORY: Respirations are nonlabored. Breath sounds are equal and clear bilaterally. No wheezes, Rhonchi, or rales. CARDIOVASCULAR: Regular rate and rhythm with normal S1-S2. No murmurs, gallops, or rubs. GASTROINTESTINAL: Soft, flat, and benign. No mass, tenderness, guarding, or rebound. No organomegaly or hernia. Bowel sounds are present. SKIN: Warm, dry, well perfused. Good turgor. No lesions, nodules, or rashes noted. Warm and dry. No rash or lesions on limited exam. EXTREMITIES: No cyanosis, clubbing, or edema. Radial and pedal pulses intact. NEUROLOGICAL: Alert. Cranial nerves 2-12 are grossly intact. No gross focal deficits to casual conversation. PSYCHIATRIC: Pleasant and cooperative with normal mood and affect. Objective Data Vital Signs Vital Signs: Vital Signs - 24 hr 09/05/21 14:38 09/05/21 15:42 09/05/21 19:15 Temperature 97.1 F L Pulse Rate 86 60 79 Respiratory Rate 16 16 19 Blood Pressure 134/73 151/91 H 143/78 H Pulse Oximetry 100 100 98 09/05/21 21:24 09/05/21 21:40 09/05/21 22:20 Temperature 98.0 F Pulse Rate 75 62 Respiratory Rate 18 20 Blood Pressure 130/79 Pulse Oximetry 97 98 99 09/05/21 22:45 09/06/21 00:10 09/06/21 03:20 Temperature 97.0 F L Pulse Rate 62 61 64 Respiratory Rate 20 14 12 Blood Pressure 131/70 Pulse Oximetry 99 96 97 09/06/21 06:00 09/06/21 08:18 Temperature 97.3 F L Pulse Rate 66 Respiratory Rate 20 Blood Pressure 119/66 Pulse Oximetry 98 98 Intake/Output Intake/Output: Intake & Output 09/03/21 09/04/21 09/05/21 09/06/21 23:59 23:59 23:59 23:59 Intake Total 1000 1000 Output Total 700 Balance 1000 300 Meds/Results Medications: Active Medications Generic Name Dose Route Start Last Admin Trade Name Freq PRN Reason Stop Dose Admin Hydrocodone Bitart/Acetaminophen 1 tab 09/05/21 19:49 09/05/21 23:02 Hydrocodone/Acetaminophen (*Crx) 5-325 Mg Tablet PO 1 tab Q4H PRN Administration Pain Rated 4-6 Bupropion HCl 300 mg 09/06/21 09:00 Bupropion Hcl Xl (24 Hr) 150 Mg Tabcr PO QAM LOLA Clopidogrel Bisulfate 75 mg 09/07/21 09:00 Clopidogrel Bisulfate 75 Mg Tablet PO DAILY LOLA Fluticasone Propionate 1 spray 05
[2021-09-06] MEDS: buPROPion HCL XL (24 HR) 150 MG TABCR 300 MG PO (09:57)
[2021-09-06] MEDS: POTASSIUM CHLORIDE 20 MEQ TABLET PO ×2 (09:58→19:05)
[2021-09-06] MEDS: SOTALOL HCL 80 MG TABLET PO ×2 (09:58→19:04)
[2021-09-06] MEDS: FLUTICASONE PROPIONATE 0.05% NA SPR 16 GM BTL (*BKC) 1 SPRAY NASAL (09:58)
[2021-09-06] MEDS: LACTATED RINGERS 1,000 ML 30 ML IV CONT (15:00)
--- NOTE | 2021-09-06 15:55 | WPDANESEPPF ---
Anes - Initial Pre Proc Eval Procedure: Operation Date: 09/06/21 16:00 Proposed Procedures p Cystoscopy, Retrograde Pyelogram, Left Stone Extraction, Possible Left Stent Placement; Possible Holmium Laser(Left) - Jayjay Og MD Date/Time: 09/06/21 15:55 Surgeon: Sonia Don PA-C Pre Op Diagnosis: Nephrolithiasis Patient Data Age: 70 Gender: M Height: 1.8 m Weight: 97.8 kg Last Vital Signs Temp 36.2 C L 09/06/21 14:53 Pulse 65 09/06/21 14:53 Resp 16 09/06/21 14:53 BP 131/83 09/06/21 14:53 Pulse Ox 98 09/06/21 14:53 Allergies Allergy/AdvReac Type Severity Reaction Status Date / Time Penicillins Allergy Unknown Rash Verified 09/05/21 22:30 pneumococcal vaccine Allergy Unknown Rash Verified 09/05/21 22:30 adhesive tape Allergy Swelling Verified 09/05/21 22:30 amiodarone Allergy Other Verified 09/05/21 22:30 NSAIDS (Non-Steroidal AdvReac Mild Other Verified 09/05/21 22:30 Anti-Inflamma Home Medications Medication Instructions Recorded Confirmed Type bupropion HCl 300 mg PO QAM 07/21/19 09/05/21 History clopidogrel [Plavix] 75 mg PO DAILY 07/21/19 09/05/21 History eszopiclone [Lunesta] 1 mg PO HS PRN 07/21/19 09/06/21 History potassium chloride 20 meq PO BID 07/21/19 09/05/21 History cyanocobalamin (vitamin B-12) 50 mcg PO DAILY 09/05/21 09/05/21 History fluticasone propionate [Flonase] 1 spray INTRANASAL DAILY 09/05/21 09/05/21 History sotalol 80 mg PO BID 09/05/21 09/05/21 History Laboratory Tests 09/05/21 17:12 Lactic Acid 0.6 mmol/L L mmol/L (0.7-2.0) Patient hx anesthesia problems: none Family hx anesthesia problems: none Results Review: All pre-operative results and documents have been reviewed as part of the pre-operative evaluation. [facility] Past Medical History Medical History (Updated 09/06/21 @ 09:30 by Sonia Don PA-C) Depression Diet-controlled diabetes mellitus Essential hypertension History of BPH Hyperlipidemia Kidney stones Obstructive sleep apnea BiPAP Paroxysmal atrial fibrillation TIA (transient ischemic attack) (~2006) Surgical History Surgical History (Updated 09/05/21 @ 22:29 by Michelle Cai DO) Artificial cardiac pacemaker (~2013) History of cardiac catheterization (~2014) History of cardiac radiofrequency ablation 2008, 2013, 2017 History of laminectomy History of repair of rotator cuff History of tonsillectomy and adenoidectomy History of transurethral resection of prostate (~2015) Presence of Watchman left atrial appendage closure device (~2017) Status post trigger finger release Family History Family History Father DVT (deep venous thrombosis) Cerebrovascular accident Malignant neoplasm of prostate Sibling Breast cancer Colon cancer Ureter cancer Mother COPD (chronic obstructive pulmonary disease) Social History Social History (Updated 09/05/21 @ 22:33 by Michelle Cai DO) Social History: The patient lives in [place] with his of 47 years. 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 He denies any significant alcohol use to speak of. He denies illicit substance use. He quit smoking in the 1980s. Code status: Full code Surrogate decision maker: Smoking packs per day: 1 Smoking cigarettes per day: 20.0 Years smoked: 10 Smoking pack-years: 10.00 Smoking status: Former smoker Tobacco type: cigarettes Alcohol intake: never Substance use: never Substance use type: does not use Spiritual care concerns: No Anes - Eval Final PreProcedure Day of Procedure 09/06/21 15:55 Patient weight: obese Heart: regular rate and rhythm Lungs: clear to auscultation and normal air movement Airway: Mallampati scale class II Neurological: alert and oriented Last oral intake: >/= 8 hours ASA classification:
[2021-09-06] MEDS: ceFAZolin SODIUM 1 GM VIAL 2 GM IV PUSH (16:41)
[2021-09-06] MEDS: LIDOCAINE HCL 2% GEL UROJET 10 ML PKG MUCOUS MEM (16:55)
--- NOTE | 2021-09-06 17:01 | W.PM.PROC2 ---
Procedure Note - Detailed Date of Procedure 09/06/21 Pre-op Diagnosis Nephrolithiasis Post-op Diagnosis Same Procedure Performed Cystoscopy with removal of bladder stone, left retrograde pyelogram Surgeon Jayjay Og MD Anesthesia General Indications This is a gentleman admitted with a 5 mm left ureteral stone. He would like intervention for his stone. He understands risks of bleeding, infection, lack of presence of stone, inability remove the stone. He agrees to proceed Findings Stones in the bladder. Extracted intact. Normal left retrograde pyelogram Description of Procedure His correctly identified. Informed consent obtained. From the operating room. He was given general anesthesia. Placed in dorsal thigh position. He was prepped and draped in a sterile fashion. Time-out performed. Prostate was open consistent with previous TUR. His bladder had moderate trabeculations. No tumors. Ureteral orifices normal. A 5 mm stone was seen within the bladder lumen. It was extracted intact. I then did a left retrograde pyelogram. He had a delicate ureter and collecting system. No hydronephrosis, no extravasation, no filling defect. His bladder was drained. Uro jet was applied. He was awakened and transferred to PACU in stable condition. Implants None Estimated Blood Loss 1 Drains No Packing No Pathology None sent Complications No immediate complications Condition Stable Disposition PACU
[2021-09-06] MEDS: PHENAZOPYRIDINE HCL 100 MG TABLET 200 MG PO (19:40)
--- NOTE | 2021-09-07 08:52 | WPDANESPN ---
Anes - Prog Note Post-Op Date/Time: 09/07/21 08:52 Cardiovascular status: normal Respiratory status: normal Airway patency: baseline Mental status: baseline Post-Op hydration status: normal Vital Signs: Last Vital Signs Temp 96.3 F L 09/06/21 19:15 Pulse 65 09/06/21 19:15 Resp 20 09/06/21 19:15 BP 136/72 09/06/21 19:15 Pulse Ox 98 09/06/21 19:15 Pain Score (VAS): 05/17 I/O: Intake & Output 09/06/21 09/07/21 09/07/21 23:59 07:59 15:59 Intake Total 200 Output Total 600 Balance -400 Laboratory Tests 09/05/21 14:43 09/05/21 14:43 Post-procedural complaints: none Patient Feedback: Patient satisfied with anesthetic care.
== END 2021-09-06 19:45 | disposition home or self-care (01) ==
LOC: ANHED 15:05 → ANH2MED 20:56
PROVIDERS: Emergency Medicine; Urology; Admitting Provider Family Medicine; Emergency Provider Emergency Medicine; PCP Internal Medicine; Visit Provider Student in an Organized Health Care Education/Training Program
PROC: (CPT 52352; principal; 2021-09-06 16:00)
DX: N21.0 Calculus in bladder (principal); N13.8 Other obstructive and reflux uropathy; I48.0 Paroxysmal atrial fibrillation; I10 Essential (primary) hypertension; E11.9 Type 2 diabetes mellitus without complications; G47.33 Obstructive sleep apnea (adult) (pediatric); Z87.891 Personal history of nicotine dependence
CPT/HCPCS: 52310; 36415; 74177; 74420; 80053; 81001; 82365; 83605; 83690; 85025; 88300; 96361; 96374; 96375; 96376; 99285; A9270; C1758; C1769; G0378; J0690; J1100; J1170; J1885; J2405; J2704; J3010; J7030; J7120; Q9966; Q9967

== ENCOUNTER 2023-03-16 07:18 | Observation (INO) | payer MEDICARE, OTHER, SELFPAY ==
[2023-03-16] VITALS (10 sets, daily range): BP systolic 122–162; BP diastolic 66–101; PULSE 61–78; RESP 11–20; TEMP 36.1–36.8; O2SAT 97–100
--- NOTE | ~2023-03-16 | XR_ITS ---
EXAMINATION: XR abdomen/kub 1V INDICATION: Right flank pain TECHNIQUE: Supine views of the abdomen were obtained on 2 radiographs. COMPARISON: CT from today FINDINGS: The proximal right ureteral stone seen on CT is obscured by lumbar fusion hardware. An 8 mm stone is seen in the right kidney lower pole. There are phleboliths of the pelvis. The bowel gas pat tern is normal. The visualized lung bases are clear. IMPRESSION: 1. Known proximal right ureteral stone obscured by lumbar fusion hardware. 2. Right nephrolithiasis. Reviewed, dictated and finalized at location L. CAR REPAIRMAN
--- NOTE | ~2023-03-16 | CT_ITS ---
EXAMINATION: CT abdomen pelvis wo con DATE: 03/16/2023 08:06 INDICATION: Right flank pain TECHNIQUE: Computed tomography (CT) of the abdomen and pelvis was performed without intravenous contr ast. The dose-length product (DLP) was 368.01 mGy-cm. Automated exposure control and iterative recons truction technique were employed. COMPARISON: 09/05/2021 FINDINGS: Minimal dependent atelectasis is present in the lung bases. The heart size is normal. The l iver, spleen, pancreas, gallbladder, and adrenal glands are normal. There is an 8 mm stone in the pro ximal right ureter causing mild hydronephrosis. There is a 7 mm stone of the right kidney lower pole. Nonobstructing stones of the left kidney measure up to 2 mm. No pathologically enlarged abdominal or pelvic lymph nodes are identified. No free intraperitoneal gas or evidence of bowel obstruction. Col onic diverticulosis is present without evidence of diverticulitis. There is a right inguinal hernia c ontaining fat. The appendix is normal. There are changes of posterior fusion from L2 through L4 and a nterior fusion at L3-4. There is severe lumbar spondylosis at L4-5. IMPRESSION: 1. 8 mm stone of the proximal right ureter causing mild hydronephrosis. 2. Bilateral nephrolithiasis. Reviewed, dictated and finalized at location L. FICIAL STONE SETTER
--- NOTE | ~2023-03-16 | XR_ITS ---
EXAMINATION: XR retrograde pyelo w/stent RT DATE: 03/16/2023 15:48 INDICATION: Right ureteral stone. TECHNIQUE: 3 intraoperative fluoroscopic views of the abdomen and pelvis were obtained. I was not pre sent. Fluoroscopy exposure time was 37 seconds. COMPARISON: CT abdomen and pelvis 03/16/2023 FINDINGS: There are changes of anterior and posterior fusion procedures in lumbar spine. The right-si ded retrograde pyelogram demonstrates mild hydronephrosis. The final images demonstrate a right inter nal ureteral stent in expected position. IMPRESSION: 1. Right internal ureteral stent in expected position. Reviewed, dictated and finalized at location E. UTER SYSTEMS CONSULTANT
--- NOTE | 2023-03-16 07:54 | ED.BACK ---
HPI - Back Pain/Injury General Chief Complaint: Back Pain/Injury Stated Complaint: back pain/cordell colored stool Time Seen by Provider: 03/16/23 07:28 History of Present Illness HPI Narrative: Patient is a 72-year-old male who presents ER with right-sided back and flank pain for the last 5 days. Aching. Radiates into the right abdomen. Associated with nausea. Has history of kidney stones. No urinary frequency urgency or dysuria. He has had some cordell colored stools but no overt diarrhea. Patient was post to have outpatient lab work today to evaluate his liver but the data on the order was wrong so he came to the ER. He feels he may have a kidney stone issue. Related Data Home Medications Medication Instructions Recorded Confirmed bupropion HCl 300 mg 24 hr tablet, 300 mg PO QAM 07/21/19 09/05/21 extended release clopidogrel 75 mg tablet (Plavix) 75 mg PO DAILY 07/21/19 09/05/21 eszopiclone 1 mg tablet (Lunesta) 1 mg PO HS PRN Sleep 07/21/19 09/06/21 potassium chloride 10 mEq 20 meq PO BID 07/21/19 09/05/21 tablet,extended release cyanocobalamin (vitamin B-12) 50 50 mcg PO DAILY 09/05/21 09/05/21 mcg tablet fluticasone propionate 50 1 spray intranasal DAILY 09/05/21 09/05/21 mcg/actuation nasal spray,suspension sotalol 80 mg tablet 80 mg PO BID 09/05/21 09/05/21 Allergies Allergy/AdvReac Type Severity Reaction Status Date / Time Penicillins Allergy Unknown Rash Verified 03/16/23 07:34 pneumococcal vaccine Allergy Unknown Rash Verified 03/16/23 07:34 adhesive tape Allergy Swelling Verified 03/16/23 07:34 amiodarone Allergy Other Verified 03/16/23 07:34 NSAIDS (Non-Steroidal AdvReac Mild Other Verified 03/16/23 07:34 Anti-Inflamma Review of Systems Review of Systems: All systems reviewed & are unremarkable except as noted in HPI and below Constitutional: Constitutional: Denies chills and Denies fever(s) ENT: Denies nasal congestion and Denies sore throat Cardiovascular: Cardiovascular: Reports no additional cardiovascular complaints Respiratory: Respiratory: Reports no additional respiratory complaints Gastrointestinal: Gastrointestinal: Reports abdominal pain, Denies diarrhea, Reports nausea and Denies vomiting Genitourinary: Genitourinary: Denies hematuria, Denies dysuria and Denies urinary frequency Comments: Positive flank pain PMFSH Past Medical History Medical History (Updated 03/16/23 @ 09:16 by Timmy Blue MD) Depression Diet-controlled diabetes mellitus Essential hypertension History of BPH Hyperlipidemia Kidney stones Obstructive sleep apnea BiPAP Paroxysmal atrial fibrillation TIA (transient ischemic attack) (~2006) Surgical History Surgical History (Updated 09/05/21 @ 22:29 by Michelle Cai DO) Artificial cardiac pacemaker (~2013) History of cardiac catheterization (~2014) History of cardiac radiofrequency ablation 2008, 2013, 2017 History of laminectomy History of repair of rotator cuff History of tonsillectomy and adenoidectomy History of transurethral resection of prostate (~2015) Presence of Watchman left atrial appendage closure device (~2017) Status post trigger finger release Family History Family History Father DVT (deep venous thrombosis) Cerebrovascular accident Malignant neoplasm of prostate Sibling Breast cancer Colon cancer Ureter cancer Mother COPD (chronic obstructive pulmonary disease) Social History Social History (Updated 09/05/21 @ 22:33 by Michelle Cai DO) Social History: The patient lives in [place] with his of 47 years. 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 He denies any significant alcohol use to speak of. He denies illicit substance use. He quit smoking in the . Code status: Full code Surrogate decision maker: Smoking pac
[2023-03-16 07:56] LABS: Basophils Percent Auto 0.7 % (0.2-1.2); Eosinophils Absolute Auto 0.1 K/mm3 (0-0.3); Eosinophils Percent Auto 1.8 % (0-4.4); Hematocrit 45.9 % (42.0-52.0); Hemoglobin 15.3 g/dL (14.0-18.0); Immature Granulocyte Absolute 0.01 K/mm3 (0.00-0.031); Immature Granulocyte Percent A 0.2 % (0-0.5); Lymphocytes Absolute Auto 1.71 K/mm3 (0.9-3.2); Lymphocytes Percent Auto 28.4 % (18.3-44.2); Mean Corpuscular HGB Conc 33.3 g/dl (32-36); Mean Corpuscular Hemoglobin 29.2 pg (26-34); Mean Corpuscular Volume 87.6 fl (80-100); Mean Platelet Volume 9.8 fl (7.4-10.4); Monocytes Absolute Auto 0.7 K/mm3 (0.1-0.6); Monocytes Percent Auto 11.3 % (2.6-8.5); Neutrophils Absolute Auto 3.5 K/mm3 (1.3-6.7); Neutrophils Percent Auto 57.6 % (45.5-73.1); Platelet Count Result 208 k/mm3 (150-375); Red Blood Count 5.24 M/mm3 (4.6-6.20); Red Cell Distribution Width 12.8 % (11.5-14.5)
[2023-03-16] MEDS: MORPHINE SULFATE (*CRX) 2 MG/ML INJ IV PUSH (07:57)
[2023-03-16] MEDS: ONDANSETRON INJ 4 MG/2 ML VIAL IV PUSH (07:57)
[2023-03-16 08:06] LABS: Alanine Aminotransferase 22 U/L (6-50); Albumin Level 4.2 g/dL (3.5-5.1); Alkaline Phosphatase 105 U/L (38-126); Anion Gap 7 mmol/L (8-16); Aspartate Amino Transferase 25 U/L (17-59); Bilirubin,Total 0.7 mg/dL (0.2-1.3); Blood Urea Nitrogen 18 mg/dL (9-20); Calcium 10.1 mg/dL (8.4-10.2); Carbon Dioxide 24 mmol/L (22-30); Chloride 107 mmol/L (98-107); Estimated CRCL calculation 81 ml/min; Estimated Glomerular Filt Rate > 60; Glucose 110 mg/dL (65-110); Lipase 50 U/L (23-300); Sodium 138 mmol/L (137-145)
[2023-03-16 08:32] LABS: Appearance Urine Turbid (Clear); Bacteria Urine None Seen /hpf; Bilirubin Urine Negative (Negative); Blood Urine 3+ (Negative); Color Urine Dark Yellow (Yellow); Glucose Urine UA Negative (Negative); Ketones Urine Negative (Negative); Leukocyte Esterase Ur Trace LEU/UL (Negative); Nitrate Urine Negative (Negative); Protein Urine 1+ mg/dL (Negative); RBC Urine >100 /hpf (0-2); Specific Grav Ur 1.023 (1.001-1.035); Squamous Epithelial Cell Urine None seen /hpf (Few)
[2023-03-16] MEDS: MORPHINE SULFATE (*CRX) 4 MG/ML INJ IV PUSH (08:45)
[2023-03-16 08:57] LABS: Add Urine Microscopic? YES
--- NOTE | 2023-03-16 11:41 | PM.IMHP ---
H&P: HPI History of Present Illness Date/Time: 03/16/23 11:41 Chief Complaint: Right flank pain Narrative: Patient a history urolithiasis but not 1 several years. He presents to the ED with a 3-4 day history of intermittent right flank pain with nausea fever chills demonstrates an obstructing 8 mm right proximal ureteral stone. Urinalysis shows some pyuria suggestive possible early tract infection. Review of Systems Cardiovascular: Cardiovascular: Denies chest pain, Denies lightheadedness, Denies palpitations and Denies dyspnea Respiratory: Respiratory: Denies dyspnea Gastrointestinal: Gastrointestinal: Denies diarrhea, Denies nausea and Denies vomiting Genitourinary: Genitourinary: Denies hematuria and Denies dysuria Endocrine: Endocrine: Denies palpitations PMFSH Past Medical History Medical History (Updated 03/16/23 @ 11:45 by Jorden Orellana MD) Depression Diet-controlled diabetes mellitus Essential hypertension History of BPH Hyperlipidemia Kidney stones Obstructive sleep apnea BiPAP Paroxysmal atrial fibrillation TIA (transient ischemic attack) (~2006) Surgical History Surgical History (Updated 09/05/21 @ 22:29 by Michelle Cai DO) Artificial cardiac pacemaker (~2013) History of cardiac catheterization (~2014) History of cardiac radiofrequency ablation 2008, 2013, 2017 History of laminectomy History of repair of rotator cuff History of tonsillectomy and adenoidectomy History of transurethral resection of prostate (~2015) Presence of Watchman left atrial appendage closure device (~2017) Status post trigger finger release Family History Family History Father DVT (deep venous thrombosis) Cerebrovascular accident Malignant neoplasm of prostate Sibling Breast cancer Colon cancer Ureter cancer Mother COPD (chronic obstructive pulmonary disease) Social History Social History (Updated 09/05/21 @ 22:33 by Michelle Cai DO) Social History: The patient lives in [place] with his of 47 years. 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 He denies any significant alcohol use to speak of. He denies illicit substance use. He quit smoking in the . Code status: Full code Surrogate decision maker: Smoking packs per day: 1 Smoking cigarettes per day: 20.0 Years smoked: 10 Smoking pack-years: 10.00 Smoking status: Former smoker Tobacco type: cigarettes Alcohol intake: never Substance use: never Substance use type: does not use Spiritual care concerns: No Meds Home Medications and Allergies Home Medications Medication Instructions Recorded Confirmed Type bupropion HCl 300 mg 24 hr tablet, 300 mg PO QAM 07/21/19 09/05/21 History extended release clopidogrel 75 mg tablet (Plavix) 75 mg PO DAILY 07/21/19 09/05/21 History eszopiclone 1 mg tablet (Lunesta) 1 mg PO HS PRN Sleep 07/21/19 09/06/21 History potassium chloride 10 mEq 20 meq PO BID 07/21/19 09/05/21 History tablet,extended release cyanocobalamin (vitamin B-12) 50 50 mcg PO DAILY 09/05/21 09/05/21 History mcg tablet fluticasone propionate 50 1 spray intranasal DAILY 09/05/21 09/05/21 History mcg/actuation nasal spray,suspension sotalol 80 mg tablet 80 mg PO BID 09/05/21 09/05/21 History phenazopyridine 200 mg tablet 200 mg PO TID PRN pain 6 doses #30 09/06/21 Rx (Pyridium) tabs Allergies Allergy/AdvReac Type Severity Reaction Status Date / Time Penicillins Allergy Unknown Rash Verified 03/16/23 07:34 pneumococcal vaccine Allergy Unknown Rash Verified 03/16/23 07:34 adhesive tape Allergy Swelling Verified 03/16/23 07:34 amiodarone Allergy Other Verified 03/16/23 07:34 NSAIDS (Non-Steroidal AdvReac Mild Other Verified 03/16/23 07:34 Anti-Inflamma Vital Signs Vital Signs - 24 hr 03/16/23 0
[2023-03-16] MEDS: LACTATED RINGERS 1,000 ML 30 ML IV CONT (15:00)
--- NOTE | 2023-03-16 15:08 | WPDANESEPPF ---
Anes - Initial Pre Proc Eval Procedure: Operation Date: 03/16/23 15:00 Proposed Procedures p Cystoscopy, Right Stent Placement - Jorden Orellana MD Date/Time: 03/16/23 15:08 Surgeon: Jorden Orellana MD Pre Op Diagnosis: ureterolithiasis Patient Data Age: 72 Gender: M Height: 1.8 m Weight: 100 kg Last Vital Signs Temp 36.1 C L 03/16/23 14:00 Pulse 66 03/16/23 14:00 Resp 18 03/16/23 14:00 BP 156/97 H 03/16/23 14:00 Pulse Ox 100 03/16/23 14:00 Allergies Allergy/AdvReac Type Severity Reaction Status Date / Time Penicillins Allergy Unknown Rash Verified 03/16/23 07:34 pneumococcal vaccine Allergy Unknown Rash Verified 03/16/23 07:34 adhesive tape Allergy Swelling Verified 03/16/23 07:34 amiodarone Allergy Other Verified 03/16/23 07:34 NSAIDS (Non-Steroidal AdvReac Mild Other Verified 03/16/23 07:34 Anti-Inflamma Home Medications Medication Instructions Recorded Confirmed Type bupropion HCl 300 mg 24 hr tablet, 300 mg PO QAM 07/21/19 03/16/23 History extended release clopidogrel 75 mg tablet (Plavix) 75 mg PO DAILY 07/21/19 03/16/23 History potassium chloride 10 mEq 20 meq PO BID 07/21/19 03/16/23 History tablet,extended release fluticasone propionate 50 1 spray intranasal DAILY PRN 09/05/21 03/16/23 History mcg/actuation nasal Congestion spray,suspension sotalol 80 mg tablet 80 mg PO BID 09/05/21 03/16/23 History rosuvastatin 5 mg tablet (Crestor) 5 mg PO DAILY 03/16/23 03/16/23 History tamsulosin 0.4 mg capsule (Flomax) 0.4 mg PO DAILY 03/16/23 03/16/23 History Laboratory Tests 03/16/23 03/16/23 07:50 08:18 WBC 6.0 K/mm3 (4.5-10.0) RBC 5.24 M/mm3 (4.6-6.20) Hgb 15.3 g/dL (14.0-18.0) Hct 45.9 % (42.0-52.0) MCV 87.6 fl (80-100) MCH 29.2 pg (26-34) MCHC 33.3 g/dl (32-36) RDW 12.8 % (11.5-14.5) Plt Count 208 k/mm3 (150-375) MPV 9.8 fl (7.4-10.4) Immature Gran % (Auto) 0.2 % (0-0.5) Neut % (Auto) 57.6 % (45.5-73.1) Lymph % (Auto) 28.4 % (18.3-44.2) [place] % (Auto) 11.3 H % (2.6-8.5) Eos % (Auto) 1.8 % (0-4.4) Baso % (Auto) 0.7 % (0.2-1.2) Lymph # (Auto) 1.71 K/mm3 (0.9-3.2) [place] # (Auto) 0.7 H K/mm3 (0.1-0.6) Eos # (Auto) 0.1 K/mm3 (0-0.3) Baso # (Auto) 0.0 K/mm3 (0.0-0.1) Abs Immat Gran (auto) 0.01 K/mm3 (0.00-0.031) Absolute Neuts (auto) 3.5 K/mm3 (1.3-6.7) Absolute Nucleated RBC 0.0 K/mm3 (0.0-0.012) Nucleated RBC % 0.0 % (0.0-0.2) Sodium 138 mmol/L (137-145) Potassium 4.0 mmol/L (3.4-5.0) Chloride 107 mmol/L (98-107) Carbon Dioxide 24 mmol/L (22-30) Anion Gap 7 L mmol/L (8-16) BUN 18 mg/dL (9-20) Creatinine 0.90 mg/dL (0.7-1.3) Estim Creat Clear Calc 81 ml/min Estimated GFR > 60 (59 - ) Glucose 110 mg/dL (65-110) Calcium 10.1 mg/dL (8.4-10.2) Total Bilirubin 0.7 mg/dL (0.2-1.3) AST 25 U/L (17-59) ALT 22 U/L (6-50) Alkaline Phosphatase 105 U/L (38-126) Total Protein 8.0 g/dL (6.3-8.2) Albumin 4.2 g/dL (3.5-5.1) Lipase 50 U/L (23-300) Urine Color Dark yellow (Yellow) Urine Appearance Turbid H (Clear) Urine pH 5.0 (5.0-9.0) Ur Specific [place] 1.023 (1.001-1.035) Urine Protein 1+ H mg/dL (Negative) Urine Glucose (UA) Negative mg/dL (Negative) Urine Ketones Negative mg/dL (Negative) Ur Blood (Man) 3+ H (Negative) Urine Nitrate Negative (Negative) Urine Bilirubin Negative (Negative) Urine Urobilinogen 1.0 mg/dL (<2.0) Leukocyte Esterase Rfl Trace H CASPER/UL (Negative) Urine RBC >100 H /hpf (0-2) Urine WBC 6-10 H /hpf Ur Squamous Epith Cells None seen /h
[2023-03-16] MEDS: ceFAZolin 2 GM/D5W 50 ML 2 GM/50 ML BAG IVPB (15:26)
[2023-03-16] MEDS: LIDOCAINE HCL 2% GEL UROJET 10 ML PKG MUCOUS MEM (15:40)
--- NOTE | 2023-03-16 17:06 | SUR.PHASEI ---
[address] LEONE, INFORMED OF NEED FOR ORDERS. 1707 NO ORDERS AT THIS TIME.
--- NOTE | 2023-03-16 17:10 | P.OP_ITS ---
Procedure Note - Detailed Date of Procedure 03/16/23 Pre-op Diagnosis Right ureteral stone Post-op Diagnosis Same Procedure Performed Cystoscopy with right retrograde pyelography and right ureteral stent placement Surgeon Jorden Orellana MD Anesthesia MAC Description of Procedure Patient is brought to the operative suite was prepped and draped in routine sterile fashion while in dorsal lithotomy position. 2% xylocaine jelly was introduced intraurethrally and systemic sedation is administered [facility]. Cystoscopy is undertaken the 19 F rigid cystoscope. He has a 2 cm prostatic urethra with about a median lobe. Bladder mucosa is normal. There was no intravesical foreign body neoplasm. 0.035 in glidewire was advanced into his right renal pelvis. His 8 mm right proximal ureteral stone is calcified and visible under fluoroscopy. Does have a tendency to hide behind his back hardware. These to Henry catheter to obtain a retrograde pyelogram and outlined the renal anatomy. I then placed a 4.8 F variable length stent with a proximal coil in the upper pole calyx and distal coil in the bladder. Scopes wires removed and he was taken to the recovery room in good condition. Drains Yes Packing No Pathology Yes Complications No immediate complications Condition Stable
--- NOTE | 2023-03-16 17:30 | SUR.PHASEI ---
1730 PT TAKEN TO FLOOR PER WHEELCHAIR AFTER VOIDING.
[2023-03-16] MEDS: SOTALOL HCL 80 MG TABLET PO (21:50)
[2023-03-17 06:00] VITALS: BP 118/71; PULSE 67; RESP 16; TEMP 36.6; O2SAT 98
--- NOTE | 2023-03-17 06:46 | WPDUROPN2 ---
Progress Note: A&P Assessment and Plan (1) Right ureteral stone: Code(s): N20.1 - Calculus of ureter Status: Acute Assessment and Plan: Discharge today. Right ESWL next week Subjective Subjective Date/Time Seen: 03/17/23 06:46 Interval history: Comfortable / no renal colic and tolerating stent Review of Systems Cardiovascular: Cardiovascular: Denies chest pain, Denies lightheadedness, Denies palpitations and Denies dyspnea Respiratory: Respiratory: Denies dyspnea Gastrointestinal: Gastrointestinal: Denies diarrhea, Denies nausea and Denies vomiting Genitourinary: Genitourinary: Denies hematuria and Denies dysuria Endocrine: Endocrine: Denies palpitations Exam Const: General: no acute distress Resp: Effort & Inspection: normal respiratory effort GI: Inspection: non-distended GI Palp: No abdominal tenderness and No Guarding due to palpation present (GI) Auscultation: normal bowel sounds Objective Data Vital Signs Vital Signs: Vital Signs - 24 hr 03/16/23 07:31 03/16/23 10:06 03/16/23 14:00 Temperature 97.5 F L 97.0 F L Pulse Rate 75 78 66 Respiratory Rate 18 20 18 Blood Pressure 160/101 H 162/98 H 156/97 H Pulse Oximetry 100 97 100 Oxygen Delivery Oxygen Flow Rate 03/16/23 14:45 03/16/23 15:50 03/16/23 16:20 Temperature 97.6 F 97.8 F Pulse Rate 64 62 62 Respiratory Rate 16 17 15 Blood Pressure 154/85 H 144/80 H 140/81 Pulse Oximetry 98 100 99 Oxygen Delivery Room Air Simple Face Mask Room Air Oxygen Flow Rate 8 03/16/23 16:35 03/16/23 16:05 03/16/23 21:50 Temperature Pulse Rate 61 65 70 Respiratory Rate 11 L 14 Blood Pressure 150/85 H 154/88 H Pulse Oximetry 100 99 Oxygen Delivery Room Air Simple Face Mask Oxygen Flow Rate 8 03/16/23 22:00 Temperature 98.2 F Pulse Rate 70 Respiratory Rate 16 Blood Pressure 122/66 Pulse Oximetry 97 Oxygen Delivery Oxygen Flow Rate Intake/Output Intake/Output: Intake & Output 03/14/23 03/15/23 03/16/23 03/17/23 23:59 23:59 23:59 23:59 Intake Total 100 50 Balance 100 50 Meds/Results Medications: Active Medications Generic Name Dose Route Start Last Admin Trade Name Freq PRN Reason Stop Dose Admin Bupropion HCl 300 mg 03/17/23 09:00 Bupropion Hcl Xl (24 Hr) 150 Mg Tabcr PO QAM [facility] Clopidogrel Bisulfate 75 mg 03/17/23 09:00 Clopidogrel Bisulfate 75 Mg Tablet PO DAILY [facility] Fluticasone Propionate 1 spray 03/16/23 17:16 Fluticasone Propionate 0.05% Na Spr 16 Gm Btl (*Bkc) NASAL DAILY PRN Congestion Potassium Chloride 20 meq 03/17/23 09:00 Potassium Chloride 20 Meq Er Tablet PO BID [facility] Rosuvastatin Calcium 5 mg 03/17/23 09:00 Rosuvastatin 5 Mg Tablet PO DAILY [facility] Sotalol HCl 80 mg 03/16/23 21:00 03/16/23 21:50 Sotalol Hcl 80 Mg Tablet PO 80 mg Q12HR LOLA Administration Tamsulosin HCl 0.4 mg 03/17/23 09:00 Tamsulosin Hcl 0.4 Mg Capsule PO DAILY [facility] Radiology Results: ITS Impressions Abdomen/Pelvis CT 03/16/23 08:16 IMPRESSION: 1. 8 mm stone of the proximal right ureter causing mild hydronephrosis. 2. Bilateral nephrolithiasis. Abdomen X-Ray 03/16/23 08:43 IMPRESSION: 1. Known proximal right ureteral stone obscured by lumbar fusion hardware. 2. Right nephrolithiasis. Retrograde Pyelogram 03/16/23 17:35 IMPRESSION: 1. Right internal ureteral stent in expected position. Labs Labs: Laboratory Results - last 24 hr 03/16/23 03/16/23 07:50 08:18 WBC 6.0 RBC 5.24 Hgb 15.3 Hct 45.9 MCV 87.6 MCH 29.2 MCHC 33.3 RDW 12.8 Plt Count 208 MPV 9.8 Immature Gran % (Auto) 0.2 Neut % (Auto) 57.6 Lymph % (Auto) 28.4 [place] % (Auto) 11.3 H Eos % (Auto) 1.8 Baso % (Auto) 0.7 Lymph # (Auto) 1.71 [place] # (Auto) 0.7 H Eos # (Auto) 0.1 Baso # (Auto) 0.0 Abs Immat Gran (auto) 0.01 Absolute Neuts (auto) 3.5 Absolute
--- NOTE | 2023-03-17 06:52 | PM.DS ---
DS: Admitting Diagnosis Discharge Date 03/17/2023 Admitting Diagnosis Right ureteral stone DS: Discharge Diagnosis Discharge Diagnosis (1) Right ureteral stone: Code(s): N20.1 - Calculus of ureter Status: Acute DS: Summary Hospital Course Hospital Course: Patient was admitted through emergency department with a painful obstructing right proximal ureteral stone. To the potential for a slight urinary tract infection we opted to simply place ureteral stent with planned right ESWL in the future. Throughout the admission he was afebrile. Following stent placement he had no further flank pain and was tolerating the stent well. Time Spent with Patient Time attestation: Total time spent providing and/or coordinating discharge services: Exam Const: General: no acute distress Resp: Effort & Inspection: normal respiratory effort GI: Inspection: non-distended GI Palp: No abdominal tenderness and No Guarding due to palpation present (GI) Auscultation: normal bowel sounds DS: Data Data Completed and Pending Labs on day of discharge: Labs from last 24 hours 03/16/23 03/16/23 08:18 07:50 WBC 6.0 RBC 5.24 Hgb 15.3 Hct 45.9 MCV 87.6 MCH 29.2 MCHC 33.3 RDW 12.8 Plt Count 208 MPV 9.8 Immature Gran % (Auto) 0.2 Neut % (Auto) 57.6 Lymph % (Auto) 28.4 [place] % (Auto) 11.3 H Eos % (Auto) 1.8 Baso % (Auto) 0.7 Lymph # (Auto) 1.71 [place] # (Auto) 0.7 H Eos # (Auto) 0.1 Baso # (Auto) 0.0 Abs Immat Gran (auto) 0.01 Absolute Neuts (auto) 3.5 Absolute Nucleated RBC 0.0 Nucleated RBC % 0.0 Sodium 138 Potassium 4.0 Chloride 107 Carbon Dioxide 24 Anion Gap 7 L BUN 18 Creatinine 0.90 Estim Creat Clear Calc 81 Estimated GFR > 60 Glucose 110 Calcium 10.1 Total Bilirubin 0.7 AST 25 ALT 22 Alkaline Phosphatase 105 Total Protein 8.0 Albumin 4.2 Lipase 50 Urine Color Dark yellow Urine Appearance Turbid H Urine pH 5.0 Ur Specific [place] 1.023 Urine Protein 1+ H Urine Glucose (UA) Negative Urine Ketones Negative Ur Blood (Man) 3+ H Urine Nitrate Negative Urine Bilirubin Negative Urine Urobilinogen 1.0 Leukocyte Esterase Rfl Trace H Urine RBC >100 H Urine WBC 6-10 H Ur Squamous Epith Cells None seen Urine Bacteria None seen Urine Casts 3-5 Discharge Plan Discharge Attending physician on discharge: Jorden Orellana Discharging Clinician: Jorden Orellana Patient Disposition: Home, Self-Care Activity: other - see discharge instructions Diet: other - see discharge instructions Discharge Instructions: 1) Activity: no driving or important decisions x24 hours. 2) Diet: resume your normal, pre-admission diet. 3) Follow-up: my office will contact to schedule right ESWL. Patient Instructions: Antibiotic Form Stand Alone Forms: General Discharge Information Follow-up/Referrals: Jorden Orellana MD [Physician] - Discharge Medications: New hydrocodone-acetaminophen 5-325 mg tablet 1 - 2 tablet PO Q6H PRN (Reason: pain) Qty: 20 0RF cephalexin 500 mg capsule 500 mg PO Q8H Qty: 15 0RF Continued potassium chloride 10 mEq Tablet Extended Release 20 meq PO BID bupropion HCl 300 mg Tablet Extended Release 24 Hr 300 mg PO QAM tamsulosin [Flomax] 0.4 mg Capsule 0.4 mg PO DAILY rosuvastatin [Crestor] 5 mg Tablet 5 mg PO DAILY sotalol 80 mg tablet 80 mg PO BID fluticasone propionate 50 mcg/actuation [place],Suspension 1 spray INTRANASAL DAILY PRN (Reason: Congestion) Held clopidogrel [Plavix] 75 mg Tablet 75 mg PO DAILY Hold Instructions: Resume on 03/26/23. Pt. to get clearance for torts law professor or PCP to hold Plavix Date of admission: 03/16/23 09:15 Primary Care Provider: Stuart,Timmy Young Admitting Provider: Jorden Orellana Attending physician on admission: [place]
[2023-03-17 07:37] LABS: INR 1.2; Prothrombin Time 15.2 Seconds (11.1-14.7)
[2023-03-17 07:38] LABS: Partial Thromboplastin Time 32.4 SECONDS (22.3-36.8)
[2023-03-17 08:00] VITALS: PULSE 67; RESP 16; O2SAT 98
--- NOTE | 2023-03-17 09:10 | WPDANESPN ---
Anes - Prog Note Post-Op Date/Time: 03/17/23 09:10 Cardiovascular status: normal Respiratory status: normal Airway patency: baseline Mental status: baseline Post-Op hydration status: normal Vital Signs: Last Vital Signs Temp 36.6 C 03/17/23 06:00 Pulse 67 03/17/23 06:00 Resp 16 03/17/23 06:00 BP 118/71 03/17/23 06:00 Pulse Ox 98 03/17/23 06:00 O2 Del Method Room Air 03/16/23 16:35 O2 Flow Rate 8 03/16/23 16:05 Pain Score (VAS): no complaints I/O: Intake & Output 03/16/23 03/17/23 03/17/23 23:59 07:59 15:59 Intake Total 100 550 Balance 100 550 Laboratory Tests 03/16/23 07:50 03/16/23 07:50 03/17/23 07:01 PT 15.2 H INR 1.2 APTT 32.4 Post-procedural complaints: none Patient Feedback: Patient satisfied with anesthetic care.
[2023-03-17] MEDS: TAMSULOSIN HCL 0.4 MG CAPSULE PO (09:25)
[2023-03-17] MEDS: POTASSIUM CHLORIDE 20 MEQ ER TABLET PO (09:25)
[2023-03-17] MEDS: CLOPIDOGREL BISULFATE 75 MG TABLET PO (09:25)
[2023-03-17] MEDS: buPROPion HCL XL (24 HR) 150 MG TABCR 300 MG PO (09:25)
[2023-03-17] MEDS: SOTALOL HCL 80 MG TABLET PO (09:25)
[2023-03-17] MEDS: ROSUVASTATIN 5 MG TABLET PO (09:25)
== END 2023-03-17 10:50 | disposition home or self-care (01) ==
LOC: ANHED 09:16 → ANH3MEDSUR 10:17
PROVIDERS: Admitting Provider Urology; Emergency Provider Emergency Medicine; PCP Internal Medicine; Visit Provider Urology
PROC: (CPT 52352; principal; 2023-03-16 15:00)
DX: N13.2 Hydronephrosis with renal and ureteral calculous obstruction (principal); M54.89 Other dorsalgia; F32.A Depression, unspecified; E11.9 Type 2 diabetes mellitus without complications; I10 Essential (primary) hypertension; E78.5 Hyperlipidemia, unspecified; G47.33 Obstructive sleep apnea (adult) (pediatric); Z99.89 Dependence on other enabling machines and devices; I48.0 Paroxysmal atrial fibrillation; Z90.79 Acquired absence of other genital organ(s); Z95.0 Presence of cardiac pacemaker; Z95.818 Presence of other cardiac implants and grafts; Z79.02 Long term (current) use of antithrombotics/antiplatelets; Z79.899 Other long term (current) drug therapy; Z86.73 Personal history of transient ischemic attack (TIA), and cerebral infarction without residual deficits; Z87.891 Personal history of nicotine dependence; Z82.3 Family history of stroke
CPT/HCPCS: 52332; 36415; 74018; 74176; 74420; 80053; 81001; 83690; 85025; 85610; 85730; 87086; 87088; 96365; 96375; 99285; A9270; C1758; C1769; C2617; G0378; J0690; J0696; J2270; J2405; J2704; J3010; J7120; Q9966

== ENCOUNTER 2023-03-24 00:31 | Day surgery (SDC) | payer MEDICARE, OTHER, SELFPAY ==
--- NOTE | 2023-03-20 13:41 | PC.NURSE ---
Report to the Outpatient Waiting Room, entrance under the green pavilion located off [facility], at time _1:30 PM on date _03/24/23 . Planned Procedure Time: _3:30 PM . Time changes happen often and if your time is changed the preop area will call you the afternoon before. - You and your visitor will be asked to self-screen and do not enter if you have any COVID symptoms. - A mask is optional within the hospital at this time. Patients may have clear liquids (water, carbonated beverages, clear teas, apple juice) until 3 hours prior to surgery with a maximum of 20 ounces. - No food from midnight until time of surgery - Infants may have breast milk until 4 hours before surgery, infant formula 6 hours prior to surgery. - Children will be allowed to drink immediately following surgery. If applicable, please bring a bottle or sippy cup to assist with drinking. Juice, water, soda, and popsicles are readily available. For infants on formula, please bring formula the day of surgery. Pacifiers are allowed. Take the following medications with a SIP of water the morning of surgery: __BUPROPION,SOTALOL DO NOT STOP ANY OF YOUR OTHER PRESCRIPTION MEDICATIONS PRIOR TO SURGERY ?EXCEPT THE FOLLOWING Medications to discontinue per physician PT STATES LAST DOSE PLAVIX 03/16/[address] LEONE Please no make-up, nail taiwanese, hairspray, perfume, deodorant, or body powder the day of surgery. No jewelry (including any body piercings) or valuables the day of surgery, leave them at home. Please take a shower or bath the night before, or the morning of, surgery with an antibacterial soap. Wear comfortable, loose fitting clothing. Children are encouraged to wear pajamas. - Jewelry must be removed prior to entering the operating room. Rings and piercings that are not removed may be cut off. - The hospital will not accept responsibility for valuables. - Please leave all valuables, including medications, at home the day of surgery. If you are going home after surgery, a licensed driver starting gate must drive you home. - NO public transportation without another adult if you receive anesthesia. - We recommend that an adult stay with you for 24 hours following discharge. - We also recommend that you do not drive, make important decision, drink alcoholic beverages, or take any drugs that were not prescribed by your health care provider for at least 24 hours after your discharge time. For Pediatric surgeries, we recommend two adults accompany the child home. Follow any additional instructions given to you from your surgeon. If you or anyone in your household have experienced Covid symptoms in the past week, please notify your surgeon or the nurse liaison at the phone number below for possible testing. Telephone instructions given to ____PT and asked if any additional questions and then verbalized understanding. Patient advised to call surgeon office or pre surgery nurse liaison [phone] if any additional questions.
[2023-03-20 14:06] VITALS: BMI 30.7
--- NOTE | 2023-03-20 14:14 | PC.NURSE ---
PT STATES NO CHANGE IN HEALTH HX SINCE LAST INTERVIEW ON 03/16/23
--- NOTE | 2023-03-22 07:39 | PM.HPGS ---
History of Present Illness History of Present Illness Consent: Risks, benefits, and alternatives have been discussed and questions answered. Patient agrees to proceed with procedure. Chief complaint: Rt Kidney Stone Narrative: Khadar Flowers is a 72 year old male without history of urolithiasis until recently when he presented the emergency department with a painful obstructing 8 mm right proximal ureteral stone. He had mild pyuria so we opted against definitive therapy play and simply paced a right ureteral stent. He now presents for right ESWL with possible stent removal. He is aware the risk including, but not limited to, hematuria, perinephric hematoma and need for additional procedures. Review of Systems Review of Systems: All systems reviewed & are unremarkable except as noted in HPI and below PMFSH Past Medical History Medical History Depression Diet-controlled diabetes mellitus Essential hypertension History of BPH Hyperlipidemia Kidney stones Obstructive sleep apnea BiPAP Paroxysmal atrial fibrillation TIA (transient ischemic attack) (~2006) Surgical History Surgical History Artificial cardiac pacemaker (~2013) History of cardiac catheterization (~2014) History of cardiac radiofrequency ablation 2008, 2013, 2017 History of laminectomy History of repair of rotator cuff History of tonsillectomy and adenoidectomy History of transurethral resection of prostate (~2015) Presence of Watchman left atrial appendage closure device (~2017) Status post trigger finger release Family History Family History Father DVT (deep venous thrombosis) Cerebrovascular accident Malignant neoplasm of prostate Sibling Breast cancer Colon cancer Ureter cancer Mother COPD (chronic obstructive pulmonary disease) Social History Social History Social History: The patient lives in [place] with his of 47 years. 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 He denies any significant alcohol use to speak of. He denies illicit substance use. He quit smoking in the . Code status: Full code Surrogate decision maker: Smoking packs per day: 1 Smoking cigarettes per day: 20.0 Years smoked: 8 Smoking pack-years: 8.00 Smoking status: Former smoker Tobacco type: cigarettes Second hand tobacco smoke exposure: No Smoking end date: 05/08/05 Alcohol intake: never Substance use: never Substance use type: does not use Lack of Transportation: No Lack of Food: Never True Current Housing: I Have Housing Concerned About Future Housing: No Difficulty Paying Gas/Electric Bills: No Difficulty Paying for Meds: No Currently Unemployed: No Education: Bachelor's Degree Difficulty w/ Childcare or Family Care: No Living arrangements: with family Spiritual care concerns: No Meds Home Medications and Allergies Home Medications Medication Instructions Recorded Confirmed Type bupropion HCl 300 mg 24 hr tablet, 300 mg PO QAM 07/21/19 03/20/23 History extended release clopidogrel 75 mg tablet (Plavix) 75 mg PO DAILY 07/21/19 03/20/23 History potassium chloride 10 mEq 20 meq PO BID 07/21/19 03/20/23 History tablet,extended release fluticasone propionate 50 1 spray intranasal DAILY PRN 09/05/21 03/20/23 History mcg/actuation nasal Congestion spray,suspension sotalol 80 mg tablet 80 mg PO BID 09/05/21 03/20/23 History rosuvastatin 5 mg tablet (Crestor) 5 mg PO DAILY 03/16/23 03/20/23 History tamsulosin 0.4 mg capsule (Flomax) 0.4 mg PO HS 03/16/23 03/20/23 History cephalexin 500 mg capsule 500 mg PO Q8H #15 caps 03/17/23 03/20/23 Rx hydrocodone 5 mg-
[2023-03-24] VITALS (8 sets, daily range): BP systolic 130–143; BP diastolic 78–89; PULSE 60–65; RESP 12–18; TEMP 36.3–36.8; O2SAT 96–100
--- NOTE | ~2023-03-24 | XR_ITS ---
Supine and upright views of the abdomen Clinical history: Lithotripsy COMPARISON: 03/16/2023 Findings: Bowel gas pattern is nonspecific. No evidence for obstruction or free air. Right ureteral s tent is now in place. There is a probable 7 mm stone along the course of the ureteral stent, projecti ng just right of the L2-L3 disc space region. No abnormal mass lesion or calcification is seen. Lumba r spinal fixation hardware is unchanged. Impression: Right ureteral stent now in place, with probable 7 mm proximal to mid right ureteral stone, as above. Stable lumbar spinal fixation hardware. Reviewed, dictated and finalized at location M. OLEER STRAIGHTENER STAMPER Impression: Right ureteral stent now in place, with probable 7 mm proximal to mid right ure teral stone, as above. Stable lumbar spinal fixation hardware.
--- NOTE | 2023-03-24 06:39 | WPDHPUPDATE1 ---
History and Physical Update Update Date/Time: 03/24/23 06:39 History and Physical has been reviewed, including an updated exam of the patient. There are NO changes in the patient's condition. Risks, benefits, and alternatives have been discussed and questions answered. Patient agrees to proceed with procedure.
[2023-03-24] MEDS: LACTATED RINGERS 1,000 ML 30 ML IV CONT ×2 (06:55→09:21)
--- NOTE | 2023-03-24 07:48 | WPDANESEPPF ---
Anes - Initial Pre Proc Eval Procedure: Operation Date: 03/24/23 09:00 Proposed Procedures p Right Extracorporeal Shock Wave Lithotripsy - Jorden Orellana MD s Cystoscopy with Possible Right Stent Removal or Exchange - Jorden Orellana MD Date/Time: 03/24/23 07:48 Surgeon: Jorden Orellana MD Pre Op Diagnosis: Rt Kidney Stone Patient Data Age: 72 Gender: M Height: 1.8 m Weight: 99.8 kg Allergies Allergy/AdvReac Type Severity Reaction Status Date / Time Penicillins Allergy Unknown Rash Verified 03/20/23 13:24 pneumococcal vaccine Allergy Unknown Rash Verified 03/20/23 13:24 adhesive tape Allergy Swelling Verified 03/20/23 13:24 amiodarone Allergy Other Verified 03/20/23 13:24 NSAIDS (Non-Steroidal AdvReac Mild Other Verified 03/20/23 13:24 Anti-Inflamma Home Medications Medication Instructions Recorded Confirmed Type bupropion HCl 300 mg 24 hr tablet, 300 mg PO QAM 07/21/19 03/20/23 History extended release clopidogrel 75 mg tablet (Plavix) 75 mg PO DAILY 07/21/19 03/20/23 History potassium chloride 10 mEq 20 meq PO BID 07/21/19 03/20/23 History tablet,extended release fluticasone propionate 50 1 spray intranasal DAILY PRN 09/05/21 03/20/23 History mcg/actuation nasal Congestion spray,suspension sotalol 80 mg tablet 80 mg PO BID 09/05/21 03/20/23 History rosuvastatin 5 mg tablet (Crestor) 5 mg PO DAILY 03/16/23 03/20/23 History tamsulosin 0.4 mg capsule (Flomax) 0.4 mg PO HS 03/16/23 03/20/23 History cephalexin 500 mg capsule 500 mg PO Q8H #15 caps 03/17/23 03/20/23 Rx hydrocodone 5 mg-acetaminophen 325 1 - 2 tablet PO Q6H PRN pain #20 03/17/23 03/20/23 Rx mg tablet tabs Laboratory Tests 03/24/23 07:25 PT Pending INR Pending APTT Pending Patient hx anesthesia problems: none Family hx anesthesia problems: none Results Review: All pre-operative results and documents have been reviewed as part of the pre-operative evaluation. [facility] Past Medical History Medical History Depression Diet-controlled diabetes mellitus Essential hypertension History of BPH Hyperlipidemia Kidney stones Obstructive sleep apnea BiPAP Paroxysmal atrial fibrillation TIA (transient ischemic attack) (~2006) Surgical History Surgical History Artificial cardiac pacemaker (~2013) History of cardiac catheterization (~2014) History of cardiac radiofrequency ablation 2008, 2013, 2017 History of laminectomy History of repair of rotator cuff History of tonsillectomy and adenoidectomy History of transurethral resection of prostate (~2015) Presence of Watchman left atrial appendage closure device (~2017) Status post trigger finger release Family History Family History Father DVT (deep venous thrombosis) Cerebrovascular accident Malignant neoplasm of prostate Sibling Breast cancer Colon cancer Ureter cancer Mother COPD (chronic obstructive pulmonary disease) Social History Social History Social History: The patient lives in [place] with his of 47 years. 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 He denies any significant alcohol use to speak of. He denies illicit substance use. He quit smoking in the . Code status: Full code Surrogate decision maker: Smoking packs per day: 1 Smoking cigarettes per day: 20.0 Years smoked: 8 Smoking pack-years: 8.00 Smoking status: Former smoker Tobacco type: cigarettes Second hand tobacco smoke exposure: No Smoking end date: 05/08/05 Alcohol intake: never Substance use: never Substance use type: does not use Lack of Transportation: No Lack of Food: Never True C
[2023-03-24 08:01] LABS: INR 1.1; Prothrombin Time 14.4 Seconds (11.1-14.7)
[2023-03-24 08:02] LABS: Partial Thromboplastin Time 30.8 SECONDS (22.3-36.8)
[2023-03-24] MEDS: ceFAZolin 2 GM/D5W 50 ML 2 GM/50 ML BAG IVPB (08:31)
--- NOTE | 2023-03-24 08:58 | P.OP_ITS ---
Procedure Note - Detailed Date of Procedure 03/24/23 Pre-op Diagnosis Right ureteral stone Post-op Diagnosis Same Procedure Performed Cystoscopy, right ureteral stent, right ESWL Surgeon Jorden Orellana MD Anesthesia General Description of Procedure The patient was brought to the operative suite where he was placed in the supine position on the Dornier lithotripter table. Flexible cystoscopy was undertaken with a 16F flexible cystoscopy. There were no urethral strictures. The prostatic urethra estimated length was 2.0cm. There was mild obstruction of the prostatic urethra with no median lobe enlargement. The bladder mucosa was normal and there was a single, orthotopic ureteral orifice bilaterally. The tip of the indwelling stent was grasped and it was removed with ease. The patient was then repositioned in the supine position with the focal point of the lithotriptor on a 6-7mm left mid-ureteral calculus. A total of 3000 shocks were delivered at a power setting of 4. There appeared to be good fragmentation of the stone. The patient tolerated the procedure well and was taken to the rec overy room in good condition. Pathology None sent Complications No immediate complications Condition Stable Disposition PACU
== END 2023-03-24 10:46 | disposition home or self-care (01) ==
PROVIDERS: PCP Internal Medicine; Visit Provider Urology
PROC: (CPT 50590; principal; 2023-03-24 09:00)
PROC: (CPT 52352; 2023-03-24 09:00)
DX: N20.0 Calculus of kidney (principal); F32.A Depression, unspecified; I10 Essential (primary) hypertension; E11.9 Type 2 diabetes mellitus without complications; E78.5 Hyperlipidemia, unspecified; I48.0 Paroxysmal atrial fibrillation; G47.33 Obstructive sleep apnea (adult) (pediatric); Z98.61 Coronary angioplasty status; Z79.02 Long term (current) use of antithrombotics/antiplatelets; Z79.891 Long term (current) use of opiate analgesic; Z95.0 Presence of cardiac pacemaker; Z86.79 Personal history of other diseases of the circulatory system; Z87.891 Personal history of nicotine dependence; Z86.73 Personal history of transient ischemic attack (TIA), and cerebral infarction without residual deficits; Z87.438 Personal history of other diseases of male genital organs; Z82.49 Family history of ischemic heart disease and other diseases of the circulatory system; Z80.42 Family history of malignant neoplasm of prostate; Z80.0 Family history of malignant neoplasm of digestive organs; Z80.3 Family history of malignant neoplasm of breast; Z80.59 Family history of malignant neoplasm of other urinary tract organ
CPT/HCPCS: 50590; 52310; 36415; 74018; 85610; 85730; C1769; J0690; J1100; J2371; J2405; J2704; J3010; J7030; J7120

== ENCOUNTER 2023-05-14 02:32 | Emergency (ER) | payer MEDICARE, OTHER, SELFPAY ==
--- NOTE | ~2023-05-14 | XR_ITS ---
XR chest 1V portable DATE: 05/14/2023 03:31 INDICATION: Nosebleed. Weakness. TECHNIQUE: Portable upright AP chest on 05/14/2023 at 0329 hours COMPARISON: 09/05/2021 CT abdomen pelvis 09/02/2017 two-view chest FINDINGS: There is a radiopaque surgical device overlying the upper lateral aspect of the left atrium . Left-sided transvenous pacemaker device with leads overlying right atrium and right ventricle. Heart size is within normal range. No hilar or mediastinal enlargement. No pulmonary infiltrate or consolidation, pleural effusion or pulmonary vascular congestion or pneumo thorax is detected. IMPRESSION: No active cardiopulmonary disease Reviewed, dictated and finalized at location A. KDOWN WORKER
[2023-05-14 02:34] VITALS: BP 151/76; PULSE 87; RESP 20; TEMP 36.6; O2SAT 96
[2023-05-14 03:07] VITALS: BP 110/74; PULSE 62; RESP 13; O2SAT 96
[2023-05-14 03:08] LABS: Basophils Absolute Auto 0.1 K/mm3 (0.0-0.1); Basophils Percent Auto 0.6 % (0.2-1.2); Eosinophils Absolute Auto 0.1 K/mm3 (0-0.3); Eosinophils Percent Auto 1.3 % (0-4.4); Hematocrit 44.8 % (42.0-52.0); Hemoglobin 14.8 g/dL (14.0-18.0); Immature Granulocyte Absolute 0.03 K/mm3 (0.00-0.031); Immature Granulocyte Percent A 0.4 % (0-0.5); Lymphocytes Absolute Auto 1.86 K/mm3 (0.9-3.2); Lymphocytes Percent Auto 22.7 % (18.3-44.2); Mean Corpuscular Hemoglobin 29.8 pg (26-34); Mean Corpuscular Volume 90.1 fl (80-100); Mean Platelet Volume 9.8 fl (7.4-10.4); Monocytes Absolute Auto 0.8 K/mm3 (0.1-0.6); Monocytes Percent Auto 10.1 % (2.6-8.5); Neutrophils Absolute Auto 5.3 K/mm3 (1.3-6.7); Neutrophils Percent Auto 64.9 % (45.5-73.1); Platelet Count Result 189 k/mm3 (150-375); Red Blood Count 4.97 M/mm3 (4.6-6.20); Red Cell Distribution Width 12.7 % (11.5-14.5); White Blood Count 8.2 K/mm3 (4.5-10.0)
--- NOTE | 2023-05-14 03:09 | ECG_ITS ---
Measurements Intervals [place] Rate: 59 P: 110 TN: 174 QRS: -20 QRSD: 107 T: 17 QT: 400 QTc: 399 Interpretive Statements ELECTRONIC ATRIAL PACEMAKER INCOMPLETE RIGHT BUNDLE BRANCH BLOCK BASELINE WANDER- V3 BORDERLINE ECG NO PREVIOUS ECG AVAILABLE FOR COMPARISON Electronically Signed On 05-14-2023 9:25:20 INFORMATION RECEPTIONIST by Guillermo Aaron D.O.
--- NOTE | 2023-05-14 03:25 | ED.GENADULT ---
HPI - General Adult General Chief complaint: Epistaxis Stated complaint: nose bleed x1hr. Time Seen by Provider: 05/14/23 02:37 History of Present Illness HPI narrative: Patient 72-year-old gentleman who presents emergency department with chief complaint of nose bleed. Patient states throughout the day has felt kind of weak and run down the patient states this evening he started having significant bleeding of the right nostril and then was putting out of both nostrils. Patient states called EMS they applied a nose clamp the patient refused transport came to the emergency department. The patient denies chest pain denies shortness of breath. Patient recently was restarted on Plavix. Related Data Home Medications Medication Instructions Recorded Confirmed bupropion HCl 300 mg 24 hr tablet, 300 mg PO QAM 07/21/19 03/24/23 extended release clopidogrel 75 mg tablet (Plavix) 75 mg PO DAILY 07/21/19 03/20/23 potassium chloride 10 mEq 20 meq PO BID 07/21/19 03/20/23 tablet,extended release fluticasone propionate 50 1 spray intranasal DAILY PRN 09/05/21 03/20/23 mcg/actuation nasal Congestion spray,suspension sotalol 80 mg tablet 80 mg PO BID 09/05/21 03/24/23 rosuvastatin 5 mg tablet (Crestor) 5 mg PO DAILY 03/16/23 03/20/23 tamsulosin 0.4 mg capsule (Flomax) 0.4 mg PO HS 03/16/23 03/20/23 Allergies Allergy/AdvReac Type Severity Reaction Status Date / Time Penicillins Allergy Unknown Rash Verified 05/14/23 03:05 pneumococcal vaccine Allergy Unknown Rash Verified 05/14/23 03:05 adhesive tape Allergy Swelling Verified 05/14/23 03:05 amiodarone Allergy Other Verified 05/14/23 03:05 NSAIDS (Non-Steroidal AdvReac Mild Other Verified 05/14/23 03:05 Anti-Inflamma Review of Systems Review of Systems: A 10 system review of systems was completed on the patient and is negative except for what is stated in the HPI. Nursing and ancillary documentation was reviewed. [facility] Past Medical History Medical History Depression Diet-controlled diabetes mellitus Essential hypertension History of BPH Hyperlipidemia Kidney stones Obstructive sleep apnea BiPAP Paroxysmal atrial fibrillation TIA (transient ischemic attack) (~2006) Surgical History Surgical History Artificial cardiac pacemaker (~2013) History of cardiac catheterization (~2014) History of cardiac radiofrequency ablation 2008, 2013, 2017 History of laminectomy History of repair of rotator cuff History of tonsillectomy and adenoidectomy History of transurethral resection of prostate (~2015) Presence of Watchman left atrial appendage closure device (~2017) Status post trigger finger release Family History Family History Father DVT (deep venous thrombosis) Cerebrovascular accident Malignant neoplasm of prostate Sibling Breast cancer Colon cancer Ureter cancer Mother COPD (chronic obstructive pulmonary disease) Social History Social History Social History: The patient lives in [place] with his of 47 years. 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 He denies any significant alcohol use to speak of. He denies illicit substance use. He quit smoking in the 1980s. Code status: Full code Surrogate decision maker: Smoking packs per day: 1 Smoking cigarettes per day: 20.0 Years smoked: 8 Smoking pack-years: 8.00 Smoking status: Former smoker Tobacco type: cigarettes Second hand tobacco smoke exposure: No Smoking end date: 05/08/05 Alcohol intake: never Substance use: never Substance use type: does not use Lack of Transportation: No Lack of Food: Never True Curr
[2023-05-14 03:38] LABS: Alanine Aminotransferase 21 U/L (6-50); Albumin Level 4.2 g/dL (3.5-5.1); Alkaline Phosphatase 120 U/L (38-126); Anion Gap 10 mmol/L (8-16); Aspartate Amino Transferase 26 U/L (17-59); Bilirubin,Total 0.9 mg/dL (0.2-1.3); Blood Urea Nitrogen 15 mg/dL (9-20); Calcium 9.9 mg/dL (8.4-10.2); Carbon Dioxide 22 mmol/L (22-30); Chloride 108 mmol/L (98-107); Estimated Glomerular Filt Rate > 60; Glucose 128 mg/dL (65-110); Potassium 3.8 mmol/L (3.4-5.0); Sodium 140 mmol/L (137-145)
[2023-05-14 03:50] LABS: Troponin I < 0.012 ng/mL (0.000-0.034)
[2023-05-14 03:59] LABS: INR 1.1
[2023-05-14 04:00] LABS: Partial Thromboplastin Time 38.7 SECONDS (22.3-36.8)
[2023-05-14 04:10] VITALS: BP 125/64; PULSE 65; RESP 15; O2SAT 95
== END 2023-05-14 04:31 | disposition home or self-care (01) ==
PROVIDERS: Emergency Provider Emergency Medicine; PCP Internal Medicine
DX: R04.0 Epistaxis (principal); I48.0 Paroxysmal atrial fibrillation; I10 Essential (primary) hypertension; E11.9 Type 2 diabetes mellitus without complications; E78.5 Hyperlipidemia, unspecified; N40.0 Benign prostatic hyperplasia without lower urinary tract symptoms; G47.33 Obstructive sleep apnea (adult) (pediatric); Z86.73 Personal history of transient ischemic attack (TIA), and cerebral infarction without residual deficits; Z87.442 Personal history of urinary calculi; Z87.891 Personal history of nicotine dependence; Z95.0 Presence of cardiac pacemaker; Z90.79 Acquired absence of other genital organ(s); I45.10 Unspecified right bundle-branch block
CPT/HCPCS: 30901; 36415; 71045; 80053; 84484; 85025; 85610; 85730; 93005; 99284

== ENCOUNTER 2023-05-14 23:22 | Emergency (ER) | payer MEDICARE, OTHER, SELFPAY ==
[2023-05-14 23:32] VITALS: BP 136/74; PULSE 67; RESP 16; TEMP 36.6; O2SAT 98
--- NOTE | 2023-05-14 23:52 | PC.NURSE ---
Patient walked up to triage desk and advised that he was leaving.
== END 2023-05-14 23:52 | disposition left against medical advice (07) ==
PROVIDERS: PCP Internal Medicine
DX: Z48.00 Encounter for change or removal of nonsurgical wound dressing (principal)
CPT/HCPCS: 99199

== ENCOUNTER 2023-05-15 08:32 | Emergency (ER) | payer MEDICARE, OTHER, SELFPAY ==
[2023-05-15 09:01] VITALS: BP 132/86; PULSE 64; RESP 20; TEMP 36.4; O2SAT 99
--- NOTE | 2023-05-15 10:16 | ED.GENADULT ---
HPI - General Adult General Chief complaint: Unspecified Stated complaint: wants rhino rocket removed History of Present Illness HPI narrative: Khadar Flowers is a 72 y/o male who presents with reports that he had a nose bleed and came here for it 2 days ago, he states they couldn't get the bleeding to stop and placed a rhino rocket placed and told to [facility]. He state that he hasn't been able to get ahold of ENT and comes here wanting the rocket out because he can't sleep with his CPAP with it in place. Related Data Home Medications Medication Instructions Recorded Confirmed bupropion HCl 300 mg 24 hr tablet, 300 mg PO QAM 07/21/19 05/16/23 extended release clopidogrel 75 mg tablet (Plavix) 75 mg PO DAILY 07/21/19 05/16/23 potassium chloride 10 mEq 20 meq PO BID 07/21/19 05/16/23 tablet,extended release fluticasone propionate 50 1 spray intranasal DAILY PRN 09/05/21 05/16/23 mcg/actuation nasal Congestion spray,suspension sotalol 80 mg tablet 80 mg PO BID 09/05/21 05/16/23 rosuvastatin 5 mg tablet (Crestor) 5 mg PO DAILY 03/16/23 05/16/23 tamsulosin 0.4 mg capsule (Flomax) 0.4 mg PO HS 03/16/23 05/16/23 Allergies Allergy/AdvReac Type Severity Reaction Status Date / Time Penicillins Allergy Unknown Rash Verified 05/16/23 15:19 pneumococcal vaccine Allergy Unknown Rash Verified 05/16/23 15:19 adhesive tape Allergy Swelling Verified 05/16/23 15:19 amiodarone Allergy Other Verified 05/16/23 15:19 NSAIDS (Non-Steroidal AdvReac Mild Other Verified 05/16/23 15:19 Anti-Inflamma Review of Systems Review of Systems: All systems reviewed & are unremarkable except as noted in HPI and below PMFSH Past Medical History Medical History Depression Diet-controlled diabetes mellitus Essential hypertension History of BPH Hyperlipidemia Kidney stones Obstructive sleep apnea BiPAP Paroxysmal atrial fibrillation TIA (transient ischemic attack) (~2006) Surgical History Surgical History Artificial cardiac pacemaker (~2013) History of cardiac catheterization (~2014) History of cardiac radiofrequency ablation 2008, 2013, 2017 History of laminectomy History of repair of rotator cuff History of tonsillectomy and adenoidectomy History of transurethral resection of prostate (~2015) Presence of Watchman left atrial appendage closure device (~2018) Status post trigger finger release Family History Family History (Updated 05/16/23 @ 15:24 by Amira Martin CMA) Father DVT (deep venous thrombosis) Cerebrovascular accident Malignant neoplasm of prostate Sibling Breast cancer Colon cancer Ureter cancer Mother COPD (chronic obstructive pulmonary disease) Thyroid disorder Social History Social History Social History: The patient lives in [place] with his of 47 years. 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 He denies any significant alcohol use to speak of. He denies illicit substance use. He quit smoking in the . Code status: Full code Surrogate decision maker: Smoking packs per day: 1 Smoking cigarettes per day: 20.0 Years smoked: 8 Smoking pack-years: 8.00 Smoking status: Former smoker Tobacco type: cigarettes Second hand tobacco smoke exposure: No Smoking end date: 05/08/05 Alcohol intake: never Substance use: never Substance use type: does not use Lack of Transportation: No Lack of Food: Never True Current Housing: I Have Housing Concerned About Future Housing: No Difficulty Paying Gas/Electric Bills: No Difficulty Paying for Meds: No Currently Unemployed: No Education: Bachelor's Degree Difficulty w/ Childcare or Family Care: No Living arrangements: jeanie
--- NOTE | 2023-05-15 10:41 | PC.NURSE ---
Pt states he has scheduled a follow up appt with ENT and is leaving.
== END 2023-05-15 10:40 | disposition left against medical advice (07) ==
PROVIDERS: Emergency Provider Nurse Practitioner Family; PCP Internal Medicine
DX: Z48.00 Encounter for change or removal of nonsurgical wound dressing (principal); I48.0 Paroxysmal atrial fibrillation; I10 Essential (primary) hypertension; E11.9 Type 2 diabetes mellitus without complications; E78.5 Hyperlipidemia, unspecified; N40.0 Benign prostatic hyperplasia without lower urinary tract symptoms; G47.33 Obstructive sleep apnea (adult) (pediatric); F32.A Depression, unspecified; Z95.0 Presence of cardiac pacemaker; Z87.442 Personal history of urinary calculi; Z86.73 Personal history of transient ischemic attack (TIA), and cerebral infarction without residual deficits; Z87.891 Personal history of nicotine dependence; Z90.79 Acquired absence of other genital organ(s); Z79.02 Long term (current) use of antithrombotics/antiplatelets
CPT/HCPCS: 99281

== ENCOUNTER 2023-08-24 17:21 | Emergency (ER) | payer MEDICARE, OTHER, SELFPAY ==
[2023-08-24] VITALS (21 sets, daily range): BP systolic 121–156; BP diastolic 63–98; PULSE 66–80; RESP 10–24; TEMP 36.7–37.4; O2SAT 94–100
--- NOTE | ~2023-08-24 | XR_ITS ---
EXAMINATION: XR chest 2V DATE: 08/24/2023 17:49 INDICATION: Weakness. Nausea. TECHNIQUE: Frontal and lateral views of the chest were obtained on 3 radiographs. COMPARISON: Chest single view 05/14/2023 FINDINGS: There is no pneumonia, pleural effusion, or pneumothorax. The heart size is normal. There i s a closure device in left atrial appendage. There is a left chest wall pacer with leads in the right atrium and right ventricle. IMPRESSION: 1. No acute cardiopulmonary disease. Reviewed, dictated and finalized at location E.
--- NOTE | 2023-08-24 17:31 | ECG_ITS ---
SEE SCANNED COPY FOR CONFIRMED REPORT MTDD
[2023-08-24 17:54] LABS: Basophils Percent Auto 0.4 % (0.2-1.2); Eosinophils Percent Auto 0.4 % (0-4.4); Hematocrit 43.3 % (42.0-52.0); Hemoglobin 13.7 g/dL (14.0-18.0); Immature Granulocyte Absolute 0.04 K/mm3 (0.00-0.031); Immature Granulocyte Percent A 0.5 % (0-0.5); Mean Corpuscular HGB Conc 31.6 g/dl (32-36); Mean Corpuscular Hemoglobin 28.5 pg (26-34); Mean Platelet Volume 9.7 fl (7.4-10.4); Monocytes Absolute Auto 0.6 K/mm3 (0.1-0.6); Monocytes Percent Auto 6.7 % (2.6-8.5); Neutrophils Absolute Auto 7.2 K/mm3 (1.3-6.7); Platelet Count Result 241 k/mm3 (150-375); Red Blood Count 4.81 M/mm3 (4.6-6.20); Red Cell Distribution Width 12.7 % (11.5-14.5); White Blood Count 8.4 K/mm3 (4.5-10.0)
[2023-08-24 18:01] LABS: Alanine Aminotransferase 14 U/L (6-50); Albumin Level 4.3 g/dL (3.5-5.1); Alkaline Phosphatase 118 U/L (38-126); Anion Gap 9 mmol/L (4-12); Aspartate Amino Transferase 20 U/L (17-59); Bilirubin,Total 0.9 mg/dL (0.2-1.3); Blood Urea Nitrogen 14 mg/dL (9-20); Calcium 10.4 mg/dL (8.4-10.2); Carbon Dioxide 24 mmol/L (22-30); Chloride 105 mmol/L (98-107); Estimated CRCL calculation 399 ml/min; Estimated Glomerular Filt Rate > 60; Glucose 107 mg/dL (65-110); Potassium 4.3 mmol/L (3.4-5.0); Sodium 138 mmol/L (137-145)
[2023-08-24 19:38] LABS: Appearance Urine Clear (Clear); Bacteria Urine None Seen /hpf; Bilirubin Urine Negative (Negative); Blood Urine Trace (Negative); Color Urine Yellow (Yellow); Glucose Urine UA Negative (Negative); Ketones Urine Negative (Negative); Leukocyte Esterase Ur Negative LEU/UL (Negative); Nitrate Urine Negative (Negative); Protein Urine Negative (Negative); Specific Grav Ur 1.021 (1.001-1.035); Squamous Epithelial Cell Urine None Seen /hpf (Few); WBC Urine 0-5 /hpf (0-3); pH Urine 7.5 (5.0-9.0)
[2023-08-24 19:41] LABS: Add Urine Microscopic? YES
[2023-08-24 20:37] LABS: Influenza A QL RT-PCR Negative (Negative); Influenza B QL RT-PCR Negative (Negative); RSV RNA, RT-PCR Negative (Negative); SARS-CoV-2 RNA PCR Negative (Negative)
--- NOTE | 2023-08-24 21:21 | ED.GENADULT ---
HPI - General Adult General Chief complaint: Weakness Stated complaint: weakness Time Seen by Provider: 08/24/23 19:32 History of Present Illness HPI narrative: Patient is a 72-year-old male who presents ER with weakness. Being over last couple days. Had some shaking chills this afternoon. Went to an urgent care and had a negative COVID test and sent here by EMS. Subjective fevers. Reports he was exposed to COVID by a friend over week ago. No chest pain or chest pressure. Reports she will occasionally get lightheaded. He has been eating and drinking without issue. No urinary symptoms. No productive cough. Minor runny nose. Related Data Home Medications Medication Instructions Recorded Confirmed bupropion HCl 300 mg 24 hr tablet, 300 mg PO QAM 07/21/19 05/16/23 extended release clopidogrel 75 mg tablet (Plavix) 75 mg PO DAILY 07/21/19 05/16/23 potassium chloride 10 mEq 20 meq PO BID 07/21/19 05/16/23 tablet,extended release fluticasone propionate 50 1 spray intranasal DAILY PRN 09/05/21 05/16/23 mcg/actuation nasal Congestion spray,suspension sotalol 80 mg tablet 80 mg PO BID 09/05/21 05/16/23 rosuvastatin 5 mg tablet (Crestor) 5 mg PO DAILY 03/16/23 05/16/23 tamsulosin 0.4 mg capsule (Flomax) 0.4 mg PO HS 03/16/23 05/16/23 Allergies Allergy/AdvReac Type Severity Reaction Status Date / Time Penicillins Allergy Unknown Rash Verified 08/24/23 17:32 pneumococcal vaccine Allergy Unknown Rash Verified 08/24/23 17:32 adhesive tape Allergy Swelling Verified 08/24/23 17:32 amiodarone Allergy Other Verified 08/24/23 17:32 NSAIDS (Non-Steroidal AdvReac Mild Other Verified 08/24/23 17:32 Anti-Inflamma Review of Systems Review of Systems: All systems reviewed & are unremarkable except as noted in HPI and below Constitutional: Constitutional: Reports chills, Reports fatigue and Reports fever(s) ENT: Denies nasal congestion and Denies sore throat Comments: Positive rhinorrhea Cardiovascular: Cardiovascular: Reports no additional cardiovascular complaints Gastrointestinal: Gastrointestinal: Reports no additional gastrointestinal complaints Integumentary/Breasts: Skin/Breast: Reports system reviewed and no additional complaints, except as docu PMFSH Past Medical History Medical History Depression Diet-controlled diabetes mellitus Essential hypertension History of BPH Hyperlipidemia Kidney stones Obstructive sleep apnea BiPAP Paroxysmal atrial fibrillation TIA (transient ischemic attack) (~2006) Surgical History Surgical History Artificial cardiac pacemaker (~2013) History of cardiac catheterization (~2014) History of cardiac radiofrequency ablation 2008, 2013, 2016 History of laminectomy History of repair of rotator cuff History of tonsillectomy and adenoidectomy History of transurethral resection of prostate (~2015) Presence of Watchman left atrial appendage closure device (~2017) Status post trigger finger release Family History Family History (Updated 05/16/23 @ 15:24 by Amira Martin CMA) Father DVT (deep venous thrombosis) Cerebrovascular accident Malignant neoplasm of prostate Sibling Breast cancer Colon cancer Ureter cancer Mother COPD (chronic obstructive pulmonary disease) Thyroid disorder Social History Social History Social History: The patient lives in [place] with his of 47 years. 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 He denies any significant alcohol use to speak of. He denies illicit substance use. He quit smoking in the . Code status: Full code Surrogate decision maker: Smoking packs per day: 1 Smoking cigarettes per day: 20.0 Years smoked: 8 S
== END 2023-08-24 21:37 | disposition home or self-care (01) ==
PROVIDERS: Emergency Medicine; Emergency Provider Emergency Medicine; PCP Internal Medicine
DX: B34.9 Viral infection, unspecified (principal); Z20.822 Contact with and (suspected) exposure to COVID-19; I10 Essential (primary) hypertension; I48.0 Paroxysmal atrial fibrillation; E11.9 Type 2 diabetes mellitus without complications; E78.5 Hyperlipidemia, unspecified; N40.0 Benign prostatic hyperplasia without lower urinary tract symptoms; G47.33 Obstructive sleep apnea (adult) (pediatric); F32.A Depression, unspecified; Z95.0 Presence of cardiac pacemaker; Z87.442 Personal history of urinary calculi; Z86.73 Personal history of transient ischemic attack (TIA), and cerebral infarction without residual deficits; Z87.891 Personal history of nicotine dependence; Z90.79 Acquired absence of other genital organ(s)
CPT/HCPCS: 36415; 71046; 80053; 81001; 85025; 87637; 93005; 99283